=== PATIENT | female | born 1975 | race Caucasian/White ===

== ENCOUNTER 2018-08-17 09:30 | Inpatient (IN) | payer MEDICAID ==
[~2018-08-17] VITALS: Ht 160 cm; Wt 54.3 kg
[2018-08-17] MEDS ORDERED: LORazepam 2 MG/ML VIAL ONE (10:33)
[2018-08-17] MEDS ORDERED: DiphenhydrAMINE HCL 50 MG/ML VIAL ONE (10:33)
[2018-08-17] MEDS ORDERED: HALOPERIDOL LACTATE 5 MG/ML VIAL ONE (10:34)
[2018-08-17] MEDS ORDERED: HALOPERIDOL LACTATE 5 MG/ML VIAL IM ONE (10:45)
[2018-08-17] MEDS ORDERED: LORazepam 2 MG/ML VIAL IM ONE (10:45)
[2018-08-17] MEDS ORDERED: DiphenhydrAMINE HCL 50 MG/ML VIAL IM ONE (10:45)
[2018-08-17 10:48] LABS: AMPHET/METH SCREEN,URINE NEGATIVE (NEGATIVE); BARBITURATE SCREEN, URINE NEGATIVE (NEGATIVE); BENZODIAZEPINES SCREEN,URINE NEGATIVE (NEGATIVE); CANNABINOID SCREEN,URINE POSITIVE (NEGATIVE); COCAINE SCREEN,URINE NEGATIVE (NEGATIVE); METHADONE SCREEN, URINE NEGATIVE (NEGATIVE); OPIATE SCREEN,URINE NEGATIVE (NEGATIVE)
[2018-08-17 10:49] LABS: PHENCYCLIDINE SCREEN,URINE NEGATIVE (NEGATIVE)
[2018-08-17] MEDS ORDERED: PROMETHAZINE HCL 25 MG TABLET PO PRN (11:45)
[2018-08-17] MEDS ORDERED: MAGNESIUM HYDROXIDE SUSPENSION 30 ML UDCUP PO PRN (11:45)
[2018-08-17] MEDS ORDERED: GuaiFENesin/D-METHORPHAN [SUGAR-FREE] 200-20MG/10 ML SYRUP UDCUP PO PRN (11:45)
[2018-08-17] MEDS ORDERED: OLANZapine 5 MG RAPDIS TABLET PO PRN (11:45)
[2018-08-17] MEDS ORDERED: LOPERAMIDE HCL 2 MG CAPSULE PO PRN (11:45)
[2018-08-17] MEDS ORDERED: TUBERCULIN, PURIFIED PROTEIN DERIVATIVE 5 TU/0.1 ML SYG ID ONE (11:45)
[2018-08-17] MEDS ORDERED: MAG HYDROX/AL HYDROX/SIMETH ES 30 ML SUSPENSION UDCUP PO PRN (11:45)
[2018-08-17] MEDS ORDERED: ACETAMINOPHEN 325 MG TABLET PO PRN (11:45)
[2018-08-17 12:21] LABS: BASOPHILS % (AUTO) 1.1 % (0.0-2.0); EOSINOPHILS % (AUTO) 0.7 % (1.0-6.0); HEMATOCRIT 39.2 % (36-46); HEMOGLOBIN 12.9 g/dL (12.0-16.0); LYMPHOCYTES # (AUTO) 1.6 K/uL (1.0-4.8); LYMPHOCYTES % (AUTO) 25.8 % (22.0-44.0); MEAN CORPUSCULAR HEMOGLOBIN 29.4 pg (26.0-34.0); MEAN CORPUSCULAR HGB CONC 32.8 G/dL (31.0-37.0); MEAN CORPUSCULAR VOLUME 90 fL (80-100); MONOCYTES # (AUTO) 0.3 K/uL (0.1-1.0); MONOCYTES % (AUTO) 4.9 % (2.0-9.0); NEUTROPHILS # (AUTO) 4.3 K/uL (1.8-7.7); NEUTROPHILS % (AUTO) 67.5 % (40.0-70.0); PLATELET COUNT (AUTO) 276 K/uL (150-450); RED BLOOD CELL COUNT(AUTO) 4.38 MIL/uL (4.00-5.20); RED CELL DISTRIBUTION WIDTH 13.8 % (11.5-14.5)
[2018-08-17 13:04] LABS: APPEARANCE,URINE CLEAR (CLEAR); BILIRUBIN,URINE NEGATIVE (NEGATIVE); GLUCOSE, URINE (UA) NEGATIVE (NEGATIVE); KETONES,URINE >=80 mg/dL (NEGATIVE); LEUKOCYTE ESTERASE ,URINE NEGATIVE (NEGATIVE); NITRATE,URINE NEGATIVE (NEGATIVE); OCCULT BLOOD,URINE NEGATIVE (NEGATIVE); PH,URINE 5.5 (5.0-8.0); UROBILINOGEN,URINE 0.2 mg/dL (<=1.0)
[2018-08-17 13:06] LABS: ANION GAP 7 mmol/L (8-16); CALCIUM, TOTAL 8.9 mg/dL (8.8-10.5); CARBON DIOXIDE 28 mmol/L (22-29); CHLORIDE 104 mmol/L (98-107); CREATININE 0.59 mg/dL (0.60-1.30); GLOMERULAR FILTR. RATE CALC > 60 mL/min (>60); GLUCOSE,RANDOM 73 mg/dL (70-110); SODIUM SERUM 139 mmol/L (136-145); UREA NITROGEN, BLOOD 10 mg/dL (7-18)
[2018-08-17 13:22] LABS: ALANINE AMINOTRANSFERASE 19 U/L (12-78); ALBUMIN 3.6 g/dL (3.4-5.0); ALKALINE PHOSPHATASE 38 U/L (46-116); ASPARTATE AMINOTRANSFERASE 25 U/L (15-37); BILIRUBIN,TOTAL 0.8 mg/dL (0.1-1.0); HCG,QUANTITATIVE < 1 mIU/mL (0-6); TOTAL PROTEIN, SERUM 6.8 g/dL (6.4-8.2)
[2018-08-17 13:33] LABS: PROTEIN,URINE NEGATIVE (NEGATIVE)
[2018-08-17] MEDS ORDERED: POTASSIUM CHLORIDE 20 MEQ ER TABLET PO ONE (14:00)
[2018-08-17] MEDS ORDERED: LAMO100 PO ×2 (15:29→15:40)
[2018-08-17] MEDS ORDERED: BUPR75 PO (15:29)
[2018-08-17] MEDS ORDERED: BUPR-93 PO (15:39)
[2018-08-17] MEDS: THIAMINE HCL 100 MG TABLET PO SCH (16:13)
[2018-08-17 16:14] VITALS: BP 114/80
[2018-08-17] MEDS ORDERED: OLANZapine 10 MG RAPDIS TABLET PO SCH (21:00)
[2018-08-17] MEDS ORDERED: DIVALPROEX SODIUM 500 MG ER TABLET PO SCH (21:00)
[2018-08-18 05:33] VITALS: BP 135/85
[2018-08-18 08:09] VITALS: BP 107/83
[2018-08-18] MEDS: FOLIC ACID 1 MG TABLET PO SCH (08:19)
[2018-08-18] MEDS: NALTREXONE HCL 50 MG TABLET PO SCH (08:19)
[2018-08-18] MEDS: MULTIVITAMINS WITH MINERALS, THERAPEUTIC TABLET PO SCH (08:19)
[2018-08-18] MEDS: THIAMINE HCL 100 MG TABLET PO SCH ×2 (08:19→16:52)
[2018-08-18] MEDS: NICOTINE 14 MG/24 HOUR PATCH TD SCH (10:33)
[2018-08-18 16:03] VITALS: BP 139/99
[2018-08-18] MEDS: LORazepam 2 MG TABLET PO PRN (16:52)
[2018-08-18] MEDS: HydrOXYzine PAMOATE 50 MG CAPSULE PO PRN (17:46)
[2018-08-18] MEDS ORDERED: ARIPiprazole 5 MG TABLET PO PRN (18:15)
[2018-08-18] MEDS ORDERED: OLANZapine 10 MG RAPDIS TABLET PO SCH (21:00)
[2018-08-19 00:15] VITALS: BP 120/81
[2018-08-19] MEDS: ZOLPIDEM TARTRATE 10 MG TABLET PO PRN ×2 (00:30→21:19)
[2018-08-19] MEDS: LORazepam 2 MG TABLET PO PRN ×2 (05:18→14:38)
[2018-08-19 08:07] VITALS: BP 111/75
[2018-08-19 08:17] LABS: HEMOGLOBIN A1C 5.4 % (4.5-6.2)
[2018-08-19] MEDS: NALTREXONE HCL 50 MG TABLET PO SCH (08:33)
[2018-08-19] MEDS: THIAMINE HCL 100 MG TABLET PO SCH ×3 (08:33→16:02)
[2018-08-19] MEDS: FOLIC ACID 1 MG TABLET PO SCH (08:33)
[2018-08-19] MEDS: MULTIVITAMINS WITH MINERALS, THERAPEUTIC TABLET PO SCH (08:33)
[2018-08-19] MEDS: NICOTINE 14 MG/24 HOUR PATCH TD SCH (08:34)
[2018-08-19 08:42] LABS: ALANINE AMINOTRANSFERASE 30 U/L (12-78); ALBUMIN 3.8 g/dL (3.4-5.0); ALKALINE PHOSPHATASE 43 U/L (46-116); ANION GAP 7 mmol/L (8-16); ASPARTATE AMINOTRANSFERASE 65 U/L (15-37); BILIRUBIN,TOTAL 1.6 mg/dL (0.1-1.0); CALCIUM, TOTAL 9.4 mg/dL (8.8-10.5); CARBON DIOXIDE 28 mmol/L (22-29); CHLORIDE 102 mmol/L (98-107); CHOL/HDL RATIO 2.1 (3.9-5.7); CHOLESTEROL 142 mg/dL (131-200); CREATININE 0.59 mg/dL (0.60-1.30); GLOMERULAR FILTR. RATE CALC > 60 mL/min (>60); GLUCOSE,RANDOM 79 mg/dL (70-110); HDL CHOLESTEROL 67 mg/dL (40-60); LDL CHOL (CALC.) 65 mg/dL (0-130); POTASSIUM 3.1 mmol/L (3.5-5.1); SODIUM SERUM 137 mmol/L (136-145); THYROID STIMULATING HORMONE 1.51 uIU/mL (0.36-3.74); TOTAL PROTEIN, SERUM 7.4 g/dL (6.4-8.2); TRIGLYCERIDES 51 mg/dL (15-150); UREA NITROGEN, BLOOD 9 mg/dL (7-18); VALPROIC ACID 21 mcg/mL (50-100)
[2018-08-19] MEDS ORDERED: ARIPiprazole 2 MG TABLET PO SCH (09:00)
[2018-08-19] MEDS ORDERED: POTASSIUM CHLORIDE 20 MEQ ER TABLET PO ONE (12:30)
[2018-08-19] MEDS: HydrOXYzine PAMOATE 50 MG CAPSULE PO PRN (15:58)
[2018-08-19] MEDS ORDERED: NALT50TA PO (16:12)
[2018-08-19] MEDS ORDERED: ARIP5TAB8 PO (16:12)
[2018-08-19 16:39] VITALS: BP 129/72
[2018-08-20 02:00] VITALS: BP 128/89
[2018-08-20] MEDS: LORazepam 2 MG TABLET PO PRN ×2 (02:06→09:26)
[2018-08-20] MEDS ORDERED: ARIP5TAB8 PO (07:59)
[2018-08-20] MEDS ORDERED: NALT50TA6 PO (07:59)
[2018-08-20 08:09] VITALS: BP 114/85
[2018-08-20 08:58] LABS: ANION GAP 11 mmol/L (8-16); CALCIUM, TOTAL 9.4 mg/dL (8.8-10.5); CARBON DIOXIDE 26 mmol/L (22-29); CHLORIDE 101 mmol/L (98-107); CREATININE 0.56 mg/dL (0.60-1.30); GLOMERULAR FILTR. RATE CALC > 60 mL/min (>60); GLUCOSE,RANDOM 90 mg/dL (70-110); POTASSIUM 3.5 mmol/L (3.5-5.1); SODIUM SERUM 138 mmol/L (136-145); UREA NITROGEN, BLOOD 6 mg/dL (7-18)
[2018-08-20] MEDS ORDERED: ARIPiprazole 5 MG TABLET PO SCH (09:00)
[2018-08-20] MEDS: NALTREXONE HCL 50 MG TABLET PO SCH (09:26)
[2018-08-20] MEDS: MULTIVITAMINS WITH MINERALS, THERAPEUTIC TABLET PO SCH (09:26)
[2018-08-20] MEDS: THIAMINE HCL 100 MG TABLET PO SCH (09:26)
[2018-08-20] MEDS: FOLIC ACID 1 MG TABLET PO SCH (09:27)
[2018-08-20] MEDS: NICOTINE 14 MG/24 HOUR PATCH TD SCH (09:28)
== END 2018-08-20 11:20 | disposition home or self-care (01) | DRG 750 ==
LOC: EMS 09:32 → B3A 14:19
PROVIDERS: ADMIT Psychiatry & Neurology Psychiatry; ATTEND Psychiatry & Neurology Psychiatry
DX: F25.9 Schizoaffective disorder, unspecified (principal); E46 Unspecified protein-calorie malnutrition; R45.851 Suicidal ideations; E87.6 Hypokalemia; F12.90 Cannabis use, unspecified, uncomplicated; F17.210 Nicotine dependence, cigarettes, uncomplicated; F31.9 Bipolar disorder, unspecified; F60.0 Paranoid personality disorder; Z65.3 Problems related to other legal circumstances; Z91.14 Patient's other noncompliance with medication regimen; Z68.21 Body mass index [BMI] 21.0-21.9, adult; Z53.20 Procedure and treatment not carried out because of patient's decision for unspecified reasons
CPT/HCPCS: 80074; 83036; 84439; 84443; 86592; 90686; G0480; J1200; J1630; J2060

== ENCOUNTER 2018-09-28 18:37 | Emergency (ER) | payer SELFPAY ==
[~2018-09-28] VITALS: Ht 160 cm; Wt 57.7 kg
[~2018-09-28 18:37] MED LIST: ARIP5TAB8 PO; NALT50TA PO; NALT50TA6 PO
[2018-09-28 19:06] VITALS: BP 125/88
[2018-09-28] MEDS ORDERED: TRIH2TAB3 PO (19:23)
[2018-09-28] MEDS ORDERED: OXCA300T29 PO (19:23)
[2018-09-28] MEDS ORDERED: HALO10 PO (19:23)
[2018-09-29] MEDS ORDERED: HALO10 PO (14:20)
[2018-09-29] MEDS ORDERED: OXCA300T29 PO (14:20)
[2018-09-29] MEDS ORDERED: TRIH2TAB3 PO (14:20)
== END 2018-09-28 20:00 | disposition left against medical advice (07) ==
LOC: EMS 18:38
DX: R45.851 Suicidal ideations (principal); Z53.21 Procedure and treatment not carried out due to patient leaving prior to being seen by health care provider

== ENCOUNTER 2018-09-29 12:47 | Inpatient (IN) | payer MEDICAID ==
[~2018-09-29] VITALS: Ht 160 cm; Wt 53.5 kg
[~2018-09-29 12:47] MED LIST changes: -ARIP5TAB8 PO; +HALO10 PO; -NALT50TA PO; -NALT50TA6 PO; +OXCA300T29 PO; +TRIH2TAB3 PO
[2018-09-29 13:39] VITALS: BP 104/65
[2018-09-29] MEDS ORDERED: NICOTINE 14 MG/24 HOUR PATCH TD PRN (14:15)
[2018-09-29] MEDS ORDERED: MAGNESIUM HYDROXIDE SUSPENSION 30 ML UDCUP PO PRN (14:15)
[2018-09-29] MEDS ORDERED: PETROLATUM,WHITE 71 GM JELLY TP PRN (14:15)
[2018-09-29] MEDS ORDERED: MAG HYDROX/AL HYDROX/SIMETH ES 30 ML SUSPENSION UDCUP PO PRN (14:15)
[2018-09-29] MEDS ORDERED: DOCUSATE SODIUM 100 MG CAPSULE PO PRN (14:15)
[2018-09-29] MEDS ORDERED: LOPERAMIDE HCL 2 MG CAPSULE PO PRN (14:15)
[2018-09-29] MEDS ORDERED: ACETAMINOPHEN 325 MG TABLET PO PRN (14:15)
[2018-09-29] MEDS ORDERED: TRIH2TAB3 PO (14:20)
[2018-09-29] MEDS ORDERED: HALO10 PO (14:20)
[2018-09-29] MEDS ORDERED: OXCA300T29 PO (14:20)
[2018-09-29 16:05] VITALS: BP 102/68
[2018-09-29] MEDS: LORazepam 2 MG TABLET PO PRN (18:04)
[2018-09-29] MEDS: ZOLPIDEM TARTRATE 10 MG TABLET PO PRN (21:53)
[2018-09-30] MEDS: LORazepam 2 MG TABLET PO PRN (00:20)
[2018-09-30] MEDS: HALOPERIDOL 5 MG TABLET PO PRN (00:21)
[2018-09-30 01:13] VITALS: BP 122/76
[2018-09-30 08:23] VITALS: BP 112/83
[2018-09-30 08:43] LABS: BASOPHILS % (AUTO) 2.4 % (0.0-2.0); EOSINOPHILS % (AUTO) 2.4 % (1.0-6.0); HEMATOCRIT 37.3 % (36-46); HEMOGLOBIN 12.7 g/dL (12.0-16.0); LYMPHOCYTES # (AUTO) 1.9 K/uL (1.0-4.8); LYMPHOCYTES % (AUTO) 36.4 % (22.0-44.0); MEAN CORPUSCULAR VOLUME 88 fL (80-100); MONOCYTES # (AUTO) 0.3 K/uL (0.1-1.0); MONOCYTES % (AUTO) 5.6 % (2.0-9.0); NEUTROPHILS # (AUTO) 2.8 K/uL (1.8-7.7); NEUTROPHILS % (AUTO) 53.2 % (40.0-70.0); PLATELET COUNT (AUTO) 332 K/uL (150-450); RED BLOOD CELL COUNT(AUTO) 4.24 MIL/uL (4.00-5.20); RED CELL DISTRIBUTION WIDTH 13.7 % (11.5-14.5)
[2018-09-30 09:16] LABS: AMPHET/METH SCREEN,URINE NEGATIVE (NEGATIVE); BARBITURATE SCREEN, URINE NEGATIVE (NEGATIVE); BENZODIAZEPINES SCREEN,URINE NEGATIVE (NEGATIVE); CANNABINOID SCREEN,URINE POSITIVE (NEGATIVE); COCAINE SCREEN,URINE NEGATIVE (NEGATIVE); METHADONE SCREEN, URINE NEGATIVE (NEGATIVE); OPIATE SCREEN,URINE NEGATIVE (NEGATIVE)
[2018-09-30 09:17] LABS: PHENCYCLIDINE SCREEN,URINE NEGATIVE (NEGATIVE)
[2018-09-30 09:23] LABS: ALANINE AMINOTRANSFERASE 19 U/L (12-78); ALBUMIN 3.7 g/dL (3.4-5.0); ALKALINE PHOSPHATASE 60 U/L (46-116); ANION GAP 8 mmol/L (8-16); ASPARTATE AMINOTRANSFERASE 20 U/L (15-37); BILIRUBIN,TOTAL 0.5 mg/dL (0.1-1.0); CARBON DIOXIDE 25 mmol/L (22-29); CHLORIDE 91 mmol/L (98-107); CHOL/HDL RATIO 2.3 (3.9-5.7); CHOLESTEROL 161 mg/dL (131-200); CREATININE 0.51 mg/dL (0.60-1.30); FREE T4 (FREE THYROXINE) 0.94 ng/dL (0.76-1.46); GLOMERULAR FILTR. RATE CALC > 60 mL/min (>60); GLUCOSE,RANDOM 85 mg/dL (70-110); HCG,QUANTITATIVE < 1 mIU/mL (0-6); HDL CHOLESTEROL 70 mg/dL (40-60); LDL CHOL (CALC.) 83 mg/dL (0-130); THYROID STIMULATING HORMONE 2.51 uIU/mL (0.36-3.74); TOTAL PROTEIN, SERUM 7.1 g/dL (6.4-8.2); TRIGLYCERIDES 40 mg/dL (15-150); UREA NITROGEN, BLOOD 8 mg/dL (7-18)
[2018-09-30 09:25] LABS: APPEARANCE,URINE CLEAR (CLEAR); BILIRUBIN,URINE NEGATIVE (NEGATIVE); GLUCOSE, URINE (UA) NEGATIVE (NEGATIVE); KETONES,URINE NEGATIVE (NEGATIVE); LEUKOCYTE ESTERASE ,URINE NEGATIVE (NEGATIVE); NITRATE,URINE NEGATIVE (NEGATIVE); OCCULT BLOOD,URINE NEGATIVE (NEGATIVE); PROTEIN,URINE NEGATIVE (NEGATIVE); UROBILINOGEN,URINE 0.2 mg/dL (<=1.0)
[2018-09-30 09:26] LABS: SODIUM SERUM 124 mmol/L (136-145)
[2018-09-30 09:41] LABS: HEMOGLOBIN A1C 5.3 % (4.5-6.2)
[2018-09-30 17:52] VITALS: BP 122/81
[2018-09-30] MEDS: ZOLPIDEM TARTRATE 10 MG TABLET PO PRN (22:37)
[2018-10-01] MEDS: LORazepam 2 MG TABLET PO PRN ×3 (04:08→20:12)
[2018-10-01] MEDS: HALOPERIDOL 5 MG TABLET PO PRN ×2 (04:09→10:52)
[2018-10-01 04:22] VITALS: BP 117/83
[2018-10-01 09:13] VITALS: BP 114/76
[2018-10-01] MEDS: ARIPiprazole 10 MG TABLET PO SCH (14:04)
[2018-10-01 17:17] VITALS: BP 127/78
[2018-10-01] MEDS: ZOLPIDEM TARTRATE 10 MG TABLET PO PRN (20:46)
[2018-10-02 06:08] VITALS: BP 125/78
[2018-10-02 06:39] LABS: ANION GAP 8 mmol/L (8-16); CARBON DIOXIDE 28 mmol/L (22-29); CHLORIDE 100 mmol/L (98-107); CREATININE 0.67 mg/dL (0.60-1.30); GLOMERULAR FILTR. RATE CALC > 60 mL/min (>60); GLUCOSE,RANDOM 90 mg/dL (70-110); POTASSIUM 4.7 mmol/L (3.5-5.1); SODIUM SERUM 136 mmol/L (136-145)
[2018-10-02 06:48] LABS: UREA NITROGEN, BLOOD 9 mg/dL (7-18)
[2018-10-02 08:05] VITALS: BP 135/97
[2018-10-02] MEDS: ARIPiprazole 10 MG TABLET PO SCH (09:48)
[2018-10-02] MEDS: LORazepam 2 MG TABLET PO PRN ×4 (09:49→21:30)
[2018-10-02] MEDS: HALOPERIDOL 5 MG TABLET PO PRN (12:26)
[2018-10-02 18:12] VITALS: BP 117/65
[2018-10-02] MEDS: ZOLPIDEM TARTRATE 10 MG TABLET PO PRN (21:40)
[2018-10-03 03:30] VITALS: BP 114/98
[2018-10-03] MEDS: LORazepam 2 MG TABLET PO PRN ×2 (03:34→11:49)
[2018-10-03 08:05] VITALS: BP 129/88
[2018-10-03] MEDS: ARIPiprazole 10 MG TABLET PO SCH (09:13)
[2018-10-03 20:13] VITALS: BP 123/89
[2018-10-03] MEDS: ZOLPIDEM TARTRATE 10 MG TABLET PO PRN (21:40)
[2018-10-04] MEDS: LORazepam 2 MG TABLET PO PRN (03:57)
[2018-10-04 05:18] VITALS: BP 121/90
[2018-10-04 07:10] VITALS: BP 115/87
[2018-10-04 08:10] VITALS: BP 126/85
[2018-10-04] MEDS: ARIPiprazole 10 MG TABLET PO SCH (09:08)
[2018-10-04] MEDS ORDERED: ARIP10TA8 PO (12:12)
== END 2018-10-04 15:33 | disposition home or self-care (01) | DRG 750 ==
LOC: B2S 13:54 → 3EI 09-30 15:10
PROVIDERS: ADMIT Psychiatry & Neurology Psychiatry; ATTEND Psychiatry & Neurology Psychiatry
DX: F25.1 Schizoaffective disorder, depressive type (principal); R45.851 Suicidal ideations; E87.1 Hypo-osmolality and hyponatremia; F32.9 Major depressive disorder, single episode, unspecified; R10.13 Epigastric pain; F19.10 Other psychoactive substance abuse, uncomplicated; Z71.51 Drug abuse counseling and surveillance of drug abuser; F12.10 Cannabis abuse, uncomplicated; Z79.899 Other long term (current) drug therapy
CPT/HCPCS: 83036; 84439; 84443; 87081

== ENCOUNTER 2018-09-30 10:17 | Emergency (ER) | payer MEDICAID ==
[~2018-09-30] VITALS: Ht 157.5 cm; Wt 57.5 kg
[2018-09-30 11:26] LABS: BASOPHILS % (AUTO) 0.7 % (0.0-2.0); EOSINOPHILS % (AUTO) 0.5 % (1.0-6.0); HEMATOCRIT 41.1 % (36-46); HEMOGLOBIN 13.7 g/dL (12.0-16.0); LYMPHOCYTES % (AUTO) 23.2 % (22.0-44.0); MEAN CORPUSCULAR HGB CONC 33.5 G/dL (31.0-37.0); MEAN CORPUSCULAR VOLUME 90 fL (80-100); MONOCYTES # (AUTO) 0.2 K/uL (0.1-1.0); MONOCYTES % (AUTO) 4.9 % (2.0-9.0); NEUTROPHILS # (AUTO) 3.2 K/uL (1.8-7.7); NEUTROPHILS % (AUTO) 70.7 % (40.0-70.0); PLATELET COUNT (AUTO) 348 K/uL (150-450); RED BLOOD CELL COUNT(AUTO) 4.59 MIL/uL (4.00-5.20); RED CELL DISTRIBUTION WIDTH 13.6 % (11.5-14.5)
[2018-09-30 11:34] LABS: OSMOLALITY,URINE 102 mOS/kg (50-1200)
[2018-09-30 11:36] LABS: SODIUM,URINE RANDOM 29 mmol/l (20-110)
[2018-09-30 11:40] LABS: ANION GAP 7 mmol/L (8-16); CALCIUM, TOTAL 9.5 mg/dL (8.8-10.5); CARBON DIOXIDE 27 mmol/L (22-29); CHLORIDE 95 mmol/L (98-107); CREATININE 0.51 mg/dL (0.60-1.30); GLOMERULAR FILTR. RATE CALC > 60 mL/min (>60); GLUCOSE,RANDOM 87 mg/dL (70-110); POTASSIUM 5.1 mmol/L (3.5-5.1); SODIUM SERUM 129 mmol/L (136-145); UREA NITROGEN, BLOOD 5 mg/dL (7-18)
[2018-09-30 11:46] LABS: ALANINE AMINOTRANSFERASE 24 U/L (12-78); ALBUMIN 4.3 g/dL (3.4-5.0); ALKALINE PHOSPHATASE 68 U/L (46-116); ASPARTATE AMINOTRANSFERASE 21 U/L (15-37); BILIRUBIN,TOTAL 0.4 mg/dL (0.1-1.0); TOTAL PROTEIN, SERUM 7.8 g/dL (6.4-8.2)
[2018-09-30 11:57] LABS: APPEARANCE,URINE CLEAR (CLEAR); BILIRUBIN,URINE NEGATIVE (NEGATIVE); GLUCOSE, URINE (UA) NEGATIVE (NEGATIVE); KETONES,URINE NEGATIVE (NEGATIVE); LEUKOCYTE ESTERASE ,URINE NEGATIVE (NEGATIVE); NITRATE,URINE NEGATIVE (NEGATIVE); OCCULT BLOOD,URINE TRACE (NEGATIVE); PH,URINE 7.5 (5.0-8.0); PROTEIN,URINE NEGATIVE (NEGATIVE); UROBILINOGEN,URINE 0.2 mg/dL (<=1.0)
[2018-09-30 12:05] LABS: BACTERIA,URINE None Seen /HPF (None Seen); RBC,URINE 0-2 /HPF (0-2); SQUAMOUS EPITHELIAL CELL,UR Rare /LPF (None Seen); WBC,URINE None Seen /HPF (0-5)
[2018-09-30 12:05] LABS: OSMOLALITY 277 mOS/kg (270-310)
[2018-09-30] MEDS ORDERED: SODIUM CHLORIDE 0.9% 1,000 ML IV ONE (12:45)
[2018-09-30 16:38] VITALS: BP 122/62
[2018-09-30 16:39] LABS: HCG,QUANTITATIVE < 1 mIU/mL (0-6)
== END 2018-09-30 17:02 | disposition other institution (70) ==
LOC: EMS 10:19
DX: F25.1 Schizoaffective disorder, depressive type (principal); E87.1 Hypo-osmolality and hyponatremia; F31.9 Bipolar disorder, unspecified; F41.9 Anxiety disorder, unspecified
CPT/HCPCS: 36415; 80053; 81001; 83930; 83935; 84300; 84702; 85025; 99285; J7030

== ENCOUNTER 2019-07-05 23:49 | Inpatient (IN) | payer MEDICAID, OTHER ==
[~2019-07-05] VITALS: Ht 160 cm; Wt 75.0 kg
[~2019-07-05 23:49] MED LIST changes: +ARIP10TA8 PO; -HALO10 PO; -OXCA300T29 PO; -TRIH2TAB3 PO
[2019-07-06] MEDS ORDERED: QUET100T PO (00:36)
[2019-07-06] MEDS ORDERED: LAMO100 PO (00:36)
[2019-07-06] MEDS ORDERED: MIRT30 PO (00:36)
[2019-07-06] MEDS ORDERED: BUPR100T6 PO (00:36)
[2019-07-06] MEDS ORDERED: HALOPERIDOL LACTATE 5 MG/ML VIAL IM ONE (00:45)
[2019-07-06] MEDS ORDERED: DiphenhydrAMINE HCL 50 MG/ML VIAL IM ONE (00:45)
[2019-07-06] MEDS ORDERED: LORazepam 2 MG/ML VIAL IM ONE (00:45)
[2019-07-06] MEDS ORDERED: QUEtiapine FUMARATE 100 MG TABLET PO PRN (01:00)
[2019-07-06 02:18] LABS: BASOPHILS % (AUTO) 0.7 % (0.0-2.0); EOSINOPHILS % (AUTO) 3.3 % (1.0-6.0); HEMATOCRIT 38.6 % (36-46); HEMOGLOBIN 12.9 g/dL (12.0-16.0); LYMPHOCYTES # (AUTO) 2.4 K/uL (1.0-4.8); LYMPHOCYTES % (AUTO) 31.8 % (22.0-44.0); MEAN CORPUSCULAR HEMOGLOBIN 29.8 pg (26.0-34.0); MEAN CORPUSCULAR HGB CONC 33.3 G/dL (31.0-37.0); MEAN CORPUSCULAR VOLUME 90 fL (80-100); MONOCYTES # (AUTO) 0.5 K/uL (0.1-1.0); MONOCYTES % (AUTO) 6.2 % (2.0-9.0); NEUTROPHILS # (AUTO) 4.4 K/uL (1.8-7.7); PLATELET COUNT (AUTO) 320 K/uL (150-450); RED BLOOD CELL COUNT(AUTO) 4.31 MIL/uL (4.00-5.20); RED CELL DISTRIBUTION WIDTH 13.9 % (11.5-14.5)
[2019-07-06 02:30] LABS: ANION GAP 7 mmol/L (8-16); CALCIUM, TOTAL 8.7 mg/dL (8.8-10.5); CARBON DIOXIDE 28 mmol/L (22-29); CHLORIDE 105 mmol/L (98-107); GLOMERULAR FILTR. RATE CALC > 60 mL/min (>60); GLUCOSE,RANDOM 102 mg/dL (70-110); POTASSIUM 3.3 mmol/L (3.5-5.1); SODIUM SERUM 140 mmol/L (136-145); UREA NITROGEN, BLOOD 6 mg/dL (7-18)
[2019-07-06 02:38] LABS: ALANINE AMINOTRANSFERASE 15 U/L (12-78); ALBUMIN 3.8 g/dL (3.4-5.0); ALKALINE PHOSPHATASE 56 U/L (46-116); ASPARTATE AMINOTRANSFERASE 21 U/L (15-37); BILIRUBIN,TOTAL 0.7 mg/dL (0.1-1.0); HCG,QUANTITATIVE < 1 mIU/mL (0-6)
[2019-07-06] MEDS ORDERED: INFLUENZA VIRUS VACCINE QVS 2019-20 (3YR+)/PF 60 MCG/0.5 ML SYRINGE IM ONE (06:00)
[2019-07-06 06:17] VITALS: BP 78/81
[2019-07-06] MEDS ORDERED: NICOTINE 14 MG/24 HOUR PATCH TD PRN (10:45)
[2019-07-06] MEDS ORDERED: ONDANSETRON HCL 4 MG TABLET PO PRN (10:45)
[2019-07-06] MEDS ORDERED: POTASSIUM CHLORIDE 20 MEQ ER TABLET PO ONE (10:45)
[2019-07-06] MEDS ORDERED: ALBUTEROL SULFATE HFA 90 MCG/PUFF 8 GM INHALER IH PRN (10:45)
[2019-07-06] MEDS ORDERED: LOPERAMIDE HCL 2 MG CAPSULE PO PRN (10:45)
[2019-07-06] MEDS ORDERED: MAGNESIUM HYDROXIDE SUSPENSION 30 ML UDCUP PO PRN (10:45)
[2019-07-06] MEDS ORDERED: ACETAMINOPHEN 325 MG TABLET PO PRN (10:45)
[2019-07-06] MEDS ORDERED: CloNIDine HCL 0.1 MG TABLET PO PRN (10:45)
[2019-07-06] MEDS ORDERED: PETROLATUM,WHITE 28 GM JELLY TP PRN (10:45)
[2019-07-06] MEDS ORDERED: GuaiFENesin/D-METHORPHAN [SUGAR-FREE] 200-20MG/10 ML SYRUP UDCUP PO PRN (10:45)
[2019-07-06 16:12] VITALS: BP 122/91
[2019-07-06] MEDS: MAG HYDROX/AL HYDROX/SIMETH ES 30 ML SUSPENSION UDCUP PO PRN (19:30)
[2019-07-06] MEDS: QUEtiapine FUMARATE 100 MG TABLET PO SCH (20:25)
[2019-07-06] MEDS: LamoTRIgine 100 MG TABLET PO SCH (20:25)
[2019-07-07] MEDS: ZOLPIDEM TARTRATE 10 MG TABLET PO PRN ×2 (01:53→22:06)
[2019-07-07 08:24] VITALS: BP 131/79
[2019-07-07] MEDS: IBUPROFEN 400 MG TABLET PO PRN ×2 (09:25→14:52)
[2019-07-07 16:00] VITALS: BP 131/92
[2019-07-07] MEDS: MAG HYDROX/AL HYDROX/SIMETH ES 30 ML SUSPENSION UDCUP PO PRN (16:24)
[2019-07-07 19:00] VITALS: BP 158/96
[2019-07-07] MEDS: LamoTRIgine 100 MG TABLET PO SCH (20:38)
[2019-07-07] MEDS: QUEtiapine FUMARATE 100 MG TABLET PO SCH (20:38)
[2019-07-08] MEDS: LORazepam 2 MG TABLET PO PRN ×2 (01:18→12:39)
[2019-07-08 03:17] VITALS: BP 126/72
[2019-07-08 08:18] VITALS: BP 114/84
[2019-07-08] MEDS: DOCUSATE SODIUM 100 MG CAPSULE PO PRN (08:47)
[2019-07-08] MEDS: PANTOPRAZOLE SODIUM 40 MG DR TABLET PO SCH (11:34)
[2019-07-08 16:07] VITALS: BP 134/74
[2019-07-08] MEDS: LamoTRIgine 100 MG TABLET PO SCH (20:05)
[2019-07-08] MEDS: QUEtiapine FUMARATE 100 MG TABLET PO SCH (20:06)
[2019-07-09 00:44] VITALS: BP 140/94
[2019-07-09] MEDS: ZOLPIDEM TARTRATE 10 MG TABLET PO PRN (01:38)
[2019-07-09] MEDS: IBUPROFEN 400 MG TABLET PO PRN (04:11)
[2019-07-09 08:05] VITALS: BP 139/95
[2019-07-09] MEDS: PANTOPRAZOLE SODIUM 40 MG DR TABLET PO SCH (08:12)
[2019-07-09] MEDS: LORazepam 2 MG TABLET PO PRN (08:12)
[2019-07-09] MEDS: DOCUSATE SODIUM 100 MG CAPSULE PO PRN (08:12)
[2019-07-09] MEDS ORDERED: QUET100T33 PO (10:54)
[2019-07-09] MEDS ORDERED: LAMO100 PO (10:54)
[2019-07-09] MEDS ORDERED: PANT40TA25 PO (11:27)
== END 2019-07-09 13:30 | disposition home or self-care (01) | DRG 750 ==
LOC: EMS 23:51 → B3A 07-06 03:30
DX: F25.0 Schizoaffective disorder, bipolar type (principal); R45.851 Suicidal ideations; Z28.21 Immunization not carried out because of patient refusal; Z91.5 Personal history of self-harm; Z79.899 Other long term (current) drug therapy; K21.9 Gastro-esophageal reflux disease without esophagitis; J45.909 Unspecified asthma, uncomplicated; E87.6 Hypokalemia; F41.9 Anxiety disorder, unspecified; G47.00 Insomnia, unspecified; F19.10 Other psychoactive substance abuse, uncomplicated
CPT/HCPCS: 99291; G0480; J1200; J1630; J2060; Q0162

== ENCOUNTER 2019-07-14 00:17 | Inpatient (IN) | payer MEDICAID, OTHER ==
[~2019-07-14] VITALS: Ht 160 cm; Wt 61.6 kg
[~2019-07-14 00:17] MED LIST changes: -ARIP10TA8 PO; +PANT40TA25 PO
[2019-07-14] MEDS ORDERED: QUET200T PO (01:36)
[2019-07-14] MEDS ORDERED: HALOPERIDOL 5 MG TABLET PO PRN (02:15)
[2019-07-14] MEDS: LORazepam 2 MG TABLET PO PRN ×2 (03:14→08:54)
[2019-07-14] MEDS ORDERED: INFLUENZA VIRUS VACCINE QVS 2019-20 (3YR+)/PF 60 MCG/0.5 ML SYRINGE IM ONE (06:30)
[2019-07-14 06:43] VITALS: BP 104/71
[2019-07-14 08:08] VITALS: BP 101/68
[2019-07-14] MEDS: PANTOPRAZOLE SODIUM 40 MG DR TABLET PO SCH (08:26)
[2019-07-14] MEDS: LamoTRIgine 100 MG TABLET PO SCH (09:49)
[2019-07-14] MEDS ORDERED: MAGNESIUM HYDROXIDE SUSPENSION 30 ML UDCUP PO PRN (10:30)
[2019-07-14] MEDS ORDERED: NICOTINE 14 MG/24 HOUR PATCH TD PRN (10:30)
[2019-07-14] MEDS ORDERED: ALBUTEROL SULFATE HFA 90 MCG/PUFF 8 GM INHALER IH PRN (10:30)
[2019-07-14] MEDS ORDERED: GuaiFENesin/D-METHORPHAN [SUGAR-FREE] 200-20MG/10 ML SYRUP UDCUP PO PRN (10:30)
[2019-07-14] MEDS ORDERED: PETROLATUM,WHITE 28 GM JELLY TP PRN (10:30)
[2019-07-14] MEDS ORDERED: CloNIDine HCL 0.1 MG TABLET PO PRN (10:30)
[2019-07-14] MEDS ORDERED: DOCUSATE SODIUM 100 MG CAPSULE PO PRN (10:30)
[2019-07-14] MEDS ORDERED: LOPERAMIDE HCL 2 MG CAPSULE PO PRN (10:30)
[2019-07-14 12:02] VITALS: BP 111/75
[2019-07-14 12:13] LABS: GLUCOMETER DEV NAME(LOC) BV3N.; GLUCOSE,POINT OF CARE 86 MG/DL (70-110)
[2019-07-14 12:28] VITALS: BP 111/75
[2019-07-14 16:20] VITALS: BP 107/78
[2019-07-14] MEDS: ZOLPIDEM TARTRATE 10 MG TABLET PO PRN (20:07)
[2019-07-14] MEDS: QUEtiapine FUMARATE 200 MG TABLET PO SCH (20:07)
[2019-07-15 01:09] VITALS: BP 129/76
[2019-07-15] MEDS: LORazepam 2 MG TABLET PO PRN ×2 (02:15→08:27)
[2019-07-15 07:08] LABS: BASOPHILS % (AUTO) 1.3 % (0.0-2.0); EOSINOPHILS % (AUTO) 4.7 % (1.0-6.0); HEMATOCRIT 39.3 % (36-46); HEMOGLOBIN 13.1 g/dL (12.0-16.0); LYMPHOCYTES # (AUTO) 1.7 K/uL (1.0-4.8); LYMPHOCYTES % (AUTO) 32.6 % (22.0-44.0); MEAN CORPUSCULAR HEMOGLOBIN 30.1 pg (26.0-34.0); MEAN CORPUSCULAR HGB CONC 33.4 G/dL (31.0-37.0); MEAN CORPUSCULAR VOLUME 90 fL (80-100); MONOCYTES # (AUTO) 0.2 K/uL (0.1-1.0); MONOCYTES % (AUTO) 4.6 % (2.0-9.0); NEUTROPHILS % (AUTO) 56.8 % (40.0-70.0); PLATELET COUNT (AUTO) 313 K/uL (150-450); RED BLOOD CELL COUNT(AUTO) 4.36 MIL/uL (4.00-5.20); RED CELL DISTRIBUTION WIDTH 13.7 % (11.5-14.5)
[2019-07-15 07:28] LABS: ALANINE AMINOTRANSFERASE 63 U/L (12-78); ALBUMIN 3.4 g/dL (3.4-5.0); ALKALINE PHOSPHATASE 60 U/L (46-116); ANION GAP 5 mmol/L (8-16); ASPARTATE AMINOTRANSFERASE 38 U/L (15-37); BILIRUBIN,TOTAL 0.6 mg/dL (0.1-1.0); CALCIUM, TOTAL 8.4 mg/dL (8.8-10.5); CARBON DIOXIDE 28 mmol/L (22-29); CHLORIDE 107 mmol/L (98-107); CHOL/HDL RATIO 2.6 (3.9-5.7); CHOLESTEROL 129 mg/dL (131-200); CREATININE 0.77 mg/dL (0.60-1.30); GLOMERULAR FILTR. RATE CALC > 60 mL/min (>60); GLUCOSE,RANDOM 79 mg/dL (70-110); HCG,QUANTITATIVE < 1 mIU/mL (0-6); HDL CHOLESTEROL 50 mg/dL (40-60); LDL CHOL (CALC.) 64 mg/dL (0-130); POTASSIUM 4.1 mmol/L (3.5-5.1); SODIUM SERUM 140 mmol/L (136-145); TOTAL PROTEIN, SERUM 6.5 g/dL (6.4-8.2); TRIGLYCERIDES 73 mg/dL (15-150); UREA NITROGEN, BLOOD 10 mg/dL (7-18)
[2019-07-15 07:43] LABS: AMPHET/METH SCREEN,URINE NEGATIVE (NEGATIVE); BARBITURATE SCREEN, URINE NEGATIVE (NEGATIVE); BENZODIAZEPINES SCREEN,URINE NEGATIVE (NEGATIVE); CANNABINOID SCREEN,URINE POSITIVE (NEGATIVE); COCAINE SCREEN,URINE NEGATIVE (NEGATIVE); METHADONE SCREEN, URINE NEGATIVE (NEGATIVE); OPIATE SCREEN,URINE POSITIVE (NEGATIVE)
[2019-07-15 07:44] LABS: APPEARANCE,URINE CLEAR (CLEAR); BILIRUBIN,URINE NEGATIVE (NEGATIVE); GLUCOSE, URINE (UA) NEGATIVE (NEGATIVE); KETONES,URINE NEGATIVE (NEGATIVE); LEUKOCYTE ESTERASE ,URINE NEGATIVE (NEGATIVE); NITRATE,URINE NEGATIVE (NEGATIVE); OCCULT BLOOD,URINE TRACE (NEGATIVE); PROTEIN,URINE NEGATIVE (NEGATIVE); UROBILINOGEN,URINE 0.2 mg/dL (<=1.0)
[2019-07-15 07:45] LABS: PHENCYCLIDINE SCREEN,URINE NEGATIVE (NEGATIVE)
[2019-07-15 08:07] LABS: BACTERIA,URINE None Seen /HPF (None Seen); RBC,URINE 0-2 /HPF (0-2); SQUAMOUS EPITHELIAL CELL,UR Few /LPF (None Seen); WBC,URINE None Seen /HPF (0-5)
[2019-07-15 08:13] VITALS: BP 112/81
[2019-07-15] MEDS: PANTOPRAZOLE SODIUM 40 MG DR TABLET PO SCH (08:27)
[2019-07-15] MEDS: LamoTRIgine 100 MG TABLET PO SCH (08:27)
[2019-07-15 17:03] VITALS: BP 115/74
[2019-07-15] MEDS: QUEtiapine FUMARATE 200 MG TABLET PO SCH (20:52)
[2019-07-15] MEDS: ZOLPIDEM TARTRATE 10 MG TABLET PO PRN (21:35)
[2019-07-15 23:51] VITALS: BP 140/78
[2019-07-16 02:00] VITALS: BP 127/83
[2019-07-16] MEDS: LORazepam 2 MG TABLET PO PRN (02:06)
[2019-07-16 08:22] VITALS: BP 127/77
[2019-07-16] MEDS: LamoTRIgine 100 MG TABLET PO SCH (09:32)
[2019-07-16] MEDS: PANTOPRAZOLE SODIUM 40 MG DR TABLET PO SCH (09:32)
[2019-07-16 16:43] VITALS: BP 133/84
[2019-07-16] MEDS: QUEtiapine FUMARATE 200 MG TABLET PO SCH (20:12)
[2019-07-16] MEDS: ZOLPIDEM TARTRATE 10 MG TABLET PO PRN (20:12)
[2019-07-16] MEDS: MAG HYDROX/AL HYDROX/SIMETH ES 30 ML SUSPENSION UDCUP PO PRN (20:27)
[2019-07-17 00:02] VITALS: BP 128/72
[2019-07-17] MEDS: ONDANSETRON HCL 4 MG TABLET PO PRN ×2 (00:09→00:15)
[2019-07-17] MEDS: LORazepam 2 MG TABLET PO PRN ×3 (00:09→21:02)
[2019-07-17] MEDS: LamoTRIgine 100 MG TABLET PO SCH (08:02)
[2019-07-17] MEDS: PANTOPRAZOLE SODIUM 40 MG DR TABLET PO SCH (08:02)
[2019-07-17 08:12] VITALS: BP 134/85
[2019-07-17 10:55] VITALS: BP 123/93
[2019-07-17] MEDS: IBUPROFEN 400 MG TABLET PO PRN (10:55)
[2019-07-17 16:17] VITALS: BP 134/83
[2019-07-17] MEDS: MAG HYDROX/AL HYDROX/SIMETH ES 30 ML SUSPENSION UDCUP PO PRN ×2 (16:41→23:39)
[2019-07-17] MEDS: QUEtiapine FUMARATE 200 MG TABLET PO SCH (20:14)
[2019-07-17] MEDS: ZOLPIDEM TARTRATE 10 MG TABLET PO PRN (20:14)
[2019-07-18] MEDS: ONDANSETRON HCL 4 MG TABLET PO PRN (00:10)
[2019-07-18 02:05] VITALS: BP 125/85
[2019-07-18] MEDS: LORazepam 2 MG TABLET PO PRN ×2 (08:03→17:45)
[2019-07-18] MEDS: LamoTRIgine 100 MG TABLET PO SCH (08:03)
[2019-07-18] MEDS: PANTOPRAZOLE SODIUM 40 MG DR TABLET PO SCH (08:03)
[2019-07-18 08:04] VITALS: BP 126/77
[2019-07-18] MEDS: IBUPROFEN 400 MG TABLET PO PRN (08:04)
[2019-07-18 12:51] VITALS: BP 126/77
[2019-07-18 16:51] VITALS: BP 137/80
[2019-07-18] MEDS: QUEtiapine FUMARATE 300 MG TABLET PO SCH (20:36)
[2019-07-18 22:34] VITALS: BP 100/74
[2019-07-18] MEDS: ZOLPIDEM TARTRATE 10 MG TABLET PO PRN (22:37)
[2019-07-18] MEDS: ACETAMINOPHEN 325 MG TABLET PO PRN (22:37)
[2019-07-19 00:50] VITALS: BP 108/77
[2019-07-19] MEDS: LORazepam 2 MG TABLET PO PRN ×3 (02:21→16:34)
[2019-07-19] MEDS: MAG HYDROX/AL HYDROX/SIMETH ES 30 ML SUSPENSION UDCUP PO PRN (07:46)
[2019-07-19] MEDS: LamoTRIgine 100 MG TABLET PO SCH (08:01)
[2019-07-19] MEDS: PANTOPRAZOLE SODIUM 40 MG DR TABLET PO SCH (08:01)
[2019-07-19] MEDS: ACETAMINOPHEN 325 MG TABLET PO PRN (08:01)
[2019-07-19 08:15] VITALS: BP 135/78
[2019-07-19 16:08] VITALS: BP 111/70
[2019-07-19] MEDS: QUEtiapine FUMARATE 300 MG TABLET PO SCH (20:51)
[2019-07-20 03:19] VITALS: BP 121/78
[2019-07-20 04:10] VITALS: BP 120/78
[2019-07-20 08:00] VITALS: BP 114/77
[2019-07-20] MEDS: LORazepam 2 MG TABLET PO PRN ×2 (08:34→13:08)
[2019-07-20] MEDS: PANTOPRAZOLE SODIUM 40 MG DR TABLET PO SCH (08:34)
[2019-07-20] MEDS: LamoTRIgine 100 MG TABLET PO SCH (08:34)
[2019-07-20 20:10] VITALS: BP 116/70
[2019-07-20] MEDS: ZOLPIDEM TARTRATE 10 MG TABLET PO PRN (20:14)
[2019-07-20] MEDS: QUEtiapine FUMARATE 300 MG TABLET PO SCH (20:14)
[2019-07-20] MEDS: MAG HYDROX/AL HYDROX/SIMETH ES 30 ML SUSPENSION UDCUP PO PRN (21:41)
[2019-07-21 01:49] VITALS: BP 113/80
[2019-07-21] MEDS: MAG HYDROX/AL HYDROX/SIMETH ES 30 ML SUSPENSION UDCUP PO PRN (02:50)
[2019-07-21] MEDS: PANTOPRAZOLE SODIUM 40 MG DR TABLET PO SCH (08:12)
[2019-07-21] MEDS: LamoTRIgine 100 MG TABLET PO SCH (08:12)
[2019-07-21 08:15] VITALS: BP 123/90
[2019-07-21] MEDS ORDERED: LAMO100 PO (09:03)
[2019-07-21] MEDS ORDERED: QUET300T18 PO (09:03)
[2019-07-23] MEDS ORDERED: LITH300CRT PO (15:29)
== END 2019-07-21 13:05 | disposition home or self-care (01) | DRG 750 ==
LOC: EMS 00:18 → B3A 03:00
DX: F25.0 Schizoaffective disorder, bipolar type (principal); R45.851 Suicidal ideations; F41.9 Anxiety disorder, unspecified; F12.10 Cannabis abuse, uncomplicated; F11.10 Opioid abuse, uncomplicated; J45.909 Unspecified asthma, uncomplicated; K21.9 Gastro-esophageal reflux disease without esophagitis; D72.819 Decreased white blood cell count, unspecified; F10.10 Alcohol abuse, uncomplicated; F17.200 Nicotine dependence, unspecified, uncomplicated; I10 Essential (primary) hypertension; Z79.899 Other long term (current) drug therapy; Z91.5 Personal history of self-harm
CPT/HCPCS: 80307; 87081; G0480; Q0162

== ENCOUNTER 2020-03-14 18:35 | Inpatient (IN) | payer MEDICAID, OTHER ==
[~2020-03-14] VITALS: Ht 160 cm; Wt 61.8 kg
[~2020-03-14 18:35] MED LIST changes: +GABA-531 PO; +LORA-999 PO; +NALT50TA PO; +OLAN10TA22 PO; -PANT40TA25 PO; +PRAZ1 PO; +QUET25TA34 PO; +QUET300T18 PO
[2020-03-15] MEDS ORDERED: PNEUMOCOCCAL VACCINE POLYVALENT 0.5 ML VIAL [PPSV23] IM ONE (04:30)
[2020-03-15] MEDS: LORazepam 2 MG TABLET PO PRN (04:34)
[2020-03-15 05:00] VITALS: BP 140/85
[2020-03-15] MEDS ORDERED: CloNIDine HCL 0.1 MG TABLET PO PRN (08:30)
[2020-03-15] MEDS ORDERED: ALBUTEROL SULFATE HFA 90 MCG/PUFF 8 GM INHALER IH PRN (08:30)
[2020-03-15] MEDS ORDERED: LOPERAMIDE HCL 2 MG CAPSULE PO PRN (08:30)
[2020-03-15] MEDS ORDERED: ACETAMINOPHEN 325 MG TABLET PO PRN (08:30)
[2020-03-15] MEDS ORDERED: MAGNESIUM HYDROXIDE SUSPENSION 30 ML UDCUP PO PRN (08:30)
[2020-03-15] MEDS ORDERED: PETROLATUM,WHITE 28 GM JELLY TP PRN (08:30)
[2020-03-15] MEDS ORDERED: IBUPROFEN 400 MG TABLET PO PRN (08:30)
[2020-03-15] MEDS ORDERED: DOCUSATE SODIUM 100 MG CAPSULE PO PRN (08:30)
[2020-03-15] MEDS ORDERED: GuaiFENesin/D-METHORPHAN [SUGAR-FREE] 200-20MG/10 ML SYRUP UDCUP PO PRN (08:30)
[2020-03-15 08:39] VITALS: BP 115/85
[2020-03-15] MEDS: QUEtiapine FUMARATE 25 MG TABLET PO SCH (16:34)
[2020-03-15 16:41] VITALS: BP 127/89
[2020-03-15] MEDS: ZOLPIDEM TARTRATE 10 MG TABLET PO PRN (21:34)
[2020-03-16 08:26] VITALS: BP 135/99
[2020-03-16] MEDS: QUEtiapine FUMARATE 25 MG TABLET PO SCH ×3 (08:30→17:06)
[2020-03-16] MEDS: LORazepam 2 MG TABLET PO PRN ×2 (08:34→18:11)
[2020-03-16] MEDS ORDERED: DiphenhydrAMINE HCL 50 MG/ML VIAL ONE (08:36)
[2020-03-16] MEDS ORDERED: LORazepam 2 MG/ML VIAL ONE (08:36)
[2020-03-16] MEDS ORDERED: HALOPERIDOL LACTATE 5 MG/ML VIAL ONE ×2 (08:36→08:39)
[2020-03-16] MEDS ORDERED: HALOPERIDOL LACTATE 5 MG/ML VIAL IM ONE (08:45)
[2020-03-16] MEDS ORDERED: LORazepam 2 MG/ML VIAL IM ONE (08:45)
[2020-03-16] MEDS ORDERED: DiphenhydrAMINE HCL 50 MG/ML VIAL IM ONE (08:45)
[2020-03-16] MEDS: MAG HYDROX/AL HYDROX/SIMETH ES 30 ML SUSPENSION UDCUP PO PRN (12:46)
[2020-03-16 16:25] VITALS: BP 121/79
[2020-03-17 03:03] VITALS: BP 130/83
[2020-03-17] MEDS: QUEtiapine FUMARATE 25 MG TABLET PO SCH ×3 (08:23→16:49)
[2020-03-17] MEDS: LORazepam 2 MG TABLET PO PRN (08:23)
[2020-03-17 08:49] VITALS: BP 131/80
[2020-03-17] MEDS: NICOTINE 14 MG/24 HOUR PATCH TD PRN (18:00)
[2020-03-17] MEDS: MAG HYDROX/AL HYDROX/SIMETH ES 30 ML SUSPENSION UDCUP PO PRN ×2 (18:43→21:44)
[2020-03-17 19:51] VITALS: BP 133/83
[2020-03-17] MEDS: ONDANSETRON HCL 4 MG TABLET PO PRN (21:44)
[2020-03-17] MEDS: ZOLPIDEM TARTRATE 10 MG TABLET PO PRN (23:30)
[2020-03-18] MEDS ORDERED: ONDANSETRON HCL 4 MG TABLET PO ONE (01:30)
[2020-03-18 02:10] VITALS: BP 124/80
[2020-03-18] MEDS: QUEtiapine FUMARATE 25 MG TABLET PO SCH ×3 (08:18→16:21)
[2020-03-18] MEDS: LORazepam 2 MG TABLET PO PRN ×2 (08:18→21:00)
[2020-03-18 08:34] VITALS: BP 136/97
[2020-03-18] MEDS: MAG HYDROX/AL HYDROX/SIMETH ES 30 ML SUSPENSION UDCUP PO PRN (15:43)
[2020-03-18 16:16] VITALS: BP 133/106
[2020-03-19 00:10] VITALS: BP 118/83
[2020-03-19] MEDS: ZOLPIDEM TARTRATE 10 MG TABLET PO PRN (00:22)
[2020-03-19] MEDS: LORazepam 2 MG TABLET PO PRN ×2 (08:26→14:46)
[2020-03-19] MEDS: QUEtiapine FUMARATE 25 MG TABLET PO SCH ×3 (08:26→17:42)
[2020-03-19 08:29] VITALS: BP 138/116
[2020-03-19] MEDS: NICOTINE 14 MG/24 HOUR PATCH TD PRN (12:38)
[2020-03-19] MEDS ORDERED: QUEtiapine FUMARATE 25 MG TABLET PO SCH ×2 (13:00)
[2020-03-19 16:05] VITALS: BP 115/84
[2020-03-20 00:08] VITALS: BP 147/105
[2020-03-20] MEDS: LORazepam 2 MG TABLET PO PRN ×2 (00:18→08:24)
[2020-03-20] MEDS: ZOLPIDEM TARTRATE 10 MG TABLET PO PRN ×2 (00:18→22:12)
[2020-03-20] MEDS: OLANZapine 5 MG RAPDIS TABLET PO PRN (02:43)
[2020-03-20 08:14] VITALS: BP 132/91
[2020-03-20] MEDS: QUEtiapine FUMARATE 25 MG TABLET PO SCH ×3 (08:24→16:31)
[2020-03-20] MEDS: MAG HYDROX/AL HYDROX/SIMETH ES 30 ML SUSPENSION UDCUP PO PRN (14:34)
[2020-03-20 16:05] VITALS: BP 125/83
[2020-03-21 00:34] VITALS: BP 130/92
[2020-03-21] MEDS: LORazepam 2 MG TABLET PO PRN (00:37)
[2020-03-21] MEDS: QUEtiapine FUMARATE 25 MG TABLET PO SCH ×3 (08:22→16:18)
[2020-03-21 09:24] VITALS: BP 116/73
[2020-03-21] MEDS: NICOTINE 14 MG/24 HOUR PATCH TD PRN (10:56)
[2020-03-21] MEDS: ONDANSETRON HCL 4 MG TABLET PO PRN (12:30)
[2020-03-21] MEDS: MAG HYDROX/AL HYDROX/SIMETH ES 30 ML SUSPENSION UDCUP PO PRN (14:01)
[2020-03-21 17:02] VITALS: BP 135/94
[2020-03-22] MEDS: ZOLPIDEM TARTRATE 10 MG TABLET PO PRN ×2 (01:13→23:28)
[2020-03-22] MEDS: LORazepam 2 MG TABLET PO PRN ×3 (01:13→23:28)
[2020-03-22 01:41] VITALS: BP 138/82
[2020-03-22] MEDS: QUEtiapine FUMARATE 25 MG TABLET PO SCH ×3 (08:06→16:21)
[2020-03-22] MEDS: NICOTINE 14 MG/24 HOUR PATCH TD PRN (08:06)
[2020-03-22 08:37] VITALS: BP 132/86
[2020-03-22] MEDS: OLANZapine 5 MG RAPDIS TABLET PO PRN (13:31)
[2020-03-22 16:05] VITALS: BP 127/86
[2020-03-23 00:55] VITALS: BP 129/82
[2020-03-23] MEDS: LORazepam 2 MG TABLET PO PRN ×2 (03:35→08:44)
[2020-03-23] MEDS: QUEtiapine FUMARATE 25 MG TABLET PO SCH ×2 (08:03→12:32)
[2020-03-23 08:08] VITALS: BP 111/91
[2020-03-23] MEDS ORDERED: QUET50TA15 PO (10:40)
== END 2020-03-23 13:18 | disposition home or self-care (01) | DRG 750 ==
LOC: EMS 18:35 → B3A 23:04 → B2S 03-19 15:13
PROVIDERS: ADMIT Psychiatry & Neurology Child & Adolescent Psychiatry; ATTEND Psychiatry & Neurology Child & Adolescent Psychiatry
DX: F20.9 Schizophrenia, unspecified (principal); G44.209 Tension-type headache, unspecified, not intractable; I10 Essential (primary) hypertension; K21.9 Gastro-esophageal reflux disease without esophagitis; Z91.5 Personal history of self-harm; Z91.19 Patient's noncompliance with other medical treatment and regimen; Z28.21 Immunization not carried out because of patient refusal
CPT/HCPCS: J1200; J1630; J2060; Q0162

== ENCOUNTER 2020-03-26 18:19 | Inpatient (IN) | payer MEDICAID, OTHER ==
[~2020-03-26] VITALS: Ht 160 cm; Wt 62.6 kg
[~2020-03-26 18:19] MED LIST changes: -GABA-531 PO; -LORA-999 PO; -NALT50TA PO; -OLAN10TA22 PO; -PRAZ1 PO; -QUET25TA34 PO; -QUET300T18 PO; +QUET50TA15 PO
[2020-03-26] MEDS ORDERED: LORazepam 2 MG/ML VIAL IM ONE (19:15)
[2020-03-26] MEDS ORDERED: DiphenhydrAMINE HCL 50 MG/ML VIAL IM ONE (19:15)
[2020-03-26] MEDS ORDERED: HALOPERIDOL LACTATE 5 MG/ML VIAL IM ONE (19:15)
[2020-03-26] MEDS ORDERED: QUET25TA PO (19:23)
[2020-03-26 21:04] LABS: BASOPHILS % (AUTO) 0.6 % (0.0-2.0); HEMATOCRIT 38.7 % (36-46); HEMOGLOBIN 13.2 g/dL (12.0-16.0); LYMPHOCYTES # (AUTO) 1.6 K/uL (1.0-4.8); MEAN CORPUSCULAR HEMOGLOBIN 30.8 pg (26.0-34.0); MEAN CORPUSCULAR VOLUME 90 fL (80-100); MONOCYTES # (AUTO) 0.5 K/uL (0.1-1.0); NEUTROPHILS # (AUTO) 5.7 K/uL (1.8-7.7); NEUTROPHILS % (AUTO) 71.4 % (40.0-70.0); PLATELET COUNT (AUTO) 292 K/uL (150-450); RED BLOOD CELL COUNT(AUTO) 4.28 MIL/uL (4.00-5.20); RED CELL DISTRIBUTION WIDTH 13.9 % (11.5-14.5)
[2020-03-26 21:14] LABS: ANION GAP 5 mmol/L (8-16); CALCIUM, TOTAL 8.7 mg/dL (8.8-10.5); CARBON DIOXIDE 27 mmol/L (22-29); CHLORIDE 110 mmol/L (98-107); CREATININE 0.68 mg/dL (0.60-1.30); GLOMERULAR FILTR. RATE CALC > 60 mL/min (>60); GLUCOSE,RANDOM 122 mg/dL (70-110); POTASSIUM 3.1 mmol/L (3.5-5.1); SODIUM SERUM 142 mmol/L (136-145); UREA NITROGEN, BLOOD 9 mg/dL (7-18)
[2020-03-26 21:19] LABS: ALANINE AMINOTRANSFERASE 26 U/L (12-78); ALBUMIN 3.5 g/dL (3.4-5.0); ALKALINE PHOSPHATASE 49 U/L (46-116); ASPARTATE AMINOTRANSFERASE 25 U/L (15-37); BILIRUBIN,TOTAL 0.4 mg/dL (0.1-1.0); TOTAL PROTEIN, SERUM 6.8 g/dL (6.4-8.2)
[2020-03-26] MEDS ORDERED: POTASSIUM CHLORIDE 10% 40 MEQ/30 ML LIQUID UDCUP PO ONE (21:30)
[2020-03-27 05:09] VITALS: BP 109/76
[2020-03-27 05:31] VITALS: BP 109/76
[2020-03-27 08:09] VITALS: BP 138/89
[2020-03-27] MEDS: HALOPERIDOL 5 MG TABLET PO PRN ×2 (13:02→17:06)
[2020-03-27] MEDS ORDERED: IBUPROFEN 400 MG TABLET PO PRN (15:00)
[2020-03-27] MEDS ORDERED: GuaiFENesin/D-METHORPHAN [SUGAR-FREE] 200-20MG/10 ML SYRUP UDCUP PO PRN (15:00)
[2020-03-27] MEDS ORDERED: LOPERAMIDE HCL 2 MG CAPSULE PO PRN (15:00)
[2020-03-27] MEDS ORDERED: PETROLATUM,WHITE 28 GM JELLY TP PRN (15:00)
[2020-03-27] MEDS ORDERED: DOCUSATE SODIUM 100 MG CAPSULE PO PRN (15:00)
[2020-03-27] MEDS ORDERED: ALBUTEROL SULFATE HFA 90 MCG/PUFF 8 GM INHALER IH PRN (15:00)
[2020-03-27] MEDS ORDERED: ONDANSETRON HCL 4 MG TABLET PO PRN (15:00)
[2020-03-27] MEDS ORDERED: ACETAMINOPHEN 325 MG TABLET PO PRN (15:00)
[2020-03-27] MEDS ORDERED: MAGNESIUM HYDROXIDE SUSPENSION 30 ML UDCUP PO PRN (15:00)
[2020-03-27] MEDS ORDERED: MAG HYDROX/AL HYDROX/SIMETH ES 30 ML SUSPENSION UDCUP PO PRN (15:00)
[2020-03-27] MEDS ORDERED: CloNIDine HCL 0.1 MG TABLET PO PRN (15:00)
[2020-03-27 16:15] VITALS: BP 136/88
[2020-03-27] MEDS: QUEtiapine FUMARATE 25 MG TABLET PO SCH (18:34)
[2020-03-27] MEDS: LORazepam 1 MG TABLET PO PRN ×2 (18:34→23:50)
[2020-03-27] MEDS: NICOTINE 14 MG/24 HOUR PATCH TD PRN (18:36)
[2020-03-27] MEDS: ZOLPIDEM TARTRATE 10 MG TABLET PO PRN (23:50)
[2020-03-28 02:13] VITALS: BP 128/82
[2020-03-28] MEDS: HALOPERIDOL 5 MG TABLET PO PRN (02:23)
[2020-03-28] MEDS: QUEtiapine FUMARATE 25 MG TABLET PO SCH ×3 (08:07→16:07)
[2020-03-28] MEDS: LORazepam 1 MG TABLET PO PRN ×3 (08:08→22:26)
[2020-03-28 08:15] VITALS: BP 136/92
[2020-03-28 16:08] VITALS: BP 140/89
[2020-03-28] MEDS: ZOLPIDEM TARTRATE 10 MG TABLET PO PRN (20:03)
[2020-03-29 01:13] VITALS: BP 128/84
[2020-03-29] MEDS: HALOPERIDOL 5 MG TABLET PO PRN ×2 (01:32→23:52)
[2020-03-29] MEDS: LORazepam 1 MG TABLET PO PRN ×2 (03:26→08:16)
[2020-03-29 08:08] VITALS: BP 132/82
[2020-03-29] MEDS: QUEtiapine FUMARATE 25 MG TABLET PO SCH ×3 (08:16→17:00)
[2020-03-29] MEDS: NICOTINE 14 MG/24 HOUR PATCH TD PRN (09:12)
[2020-03-29 16:03] VITALS: BP 138/95
[2020-03-29] MEDS ORDERED: HydrOXYzine HCL 50 MG TABLET PO PRN (16:15)
[2020-03-29] MEDS ORDERED: HydrOXYzine PAMOATE 50 MG CAPSULE PO PRN (17:15)
[2020-03-29] MEDS ORDERED: TraZODone HCL 100 MG TABLET PO PRN (17:15)
[2020-03-29] MEDS: HydrOXYzine PAMOATE 50 MG CAPSULE PO PRN (23:16)
[2020-03-30] VITALS: BP 123/83
[2020-03-30 07:42] VITALS: BP 100/60
[2020-03-30 08:08] VITALS: BP 122/86
[2020-03-30] MEDS: QUEtiapine FUMARATE 25 MG TABLET PO SCH ×2 (09:00→13:00)
[2020-03-30] MEDS: HydrOXYzine PAMOATE 50 MG CAPSULE PO PRN (10:52)
[2020-03-30] MEDS: HALOPERIDOL 5 MG TABLET PO PRN (11:08)
== END 2020-03-30 21:47 | disposition home or self-care (01) | DRG 750 ==
LOC: EMS 18:24 → B3A 03-27 01:25
PROVIDERS: ADMIT Psychiatry & Neurology Child & Adolescent Psychiatry; ATTEND Psychiatry & Neurology Child & Adolescent Psychiatry
DX: F25.1 Schizoaffective disorder, depressive type (principal); E87.6 Hypokalemia; I10 Essential (primary) hypertension; R73.9 Hyperglycemia, unspecified; Z20.828 Contact with and (suspected) exposure to other viral communicable diseases
CPT/HCPCS: 87081; 87426; G0480; J1200; J1630; J2060

== ENCOUNTER 2020-04-01 00:42 | Inpatient (IN) | payer MEDICAID, OTHER ==
[~2020-04-01] VITALS: Ht 160 cm; Wt 61.9 kg
[~2020-04-01 00:42] MED LIST changes: +QUET25TA PO; -QUET50TA15 PO
[2020-04-01] MEDS ORDERED: CloNIDine HCL 0.1 MG TABLET PO PRN (08:00)
[2020-04-01] MEDS ORDERED: MAGNESIUM HYDROXIDE SUSPENSION 30 ML UDCUP PO PRN (08:00)
[2020-04-01] MEDS ORDERED: PETROLATUM,WHITE 28 GM JELLY TP PRN (08:00)
[2020-04-01] MEDS ORDERED: ONDANSETRON HCL 4 MG TABLET PO PRN (08:00)
[2020-04-01] MEDS ORDERED: IBUPROFEN 400 MG TABLET PO PRN (08:00)
[2020-04-01] MEDS ORDERED: MAG HYDROX/AL HYDROX/SIMETH ES 30 ML SUSPENSION UDCUP PO PRN (08:00)
[2020-04-01] MEDS ORDERED: ACETAMINOPHEN 325 MG TABLET PO PRN (08:00)
[2020-04-01] MEDS ORDERED: GuaiFENesin/D-METHORPHAN [SUGAR-FREE] 200-20MG/10 ML SYRUP UDCUP PO PRN (08:00)
[2020-04-01] MEDS ORDERED: LOPERAMIDE HCL 2 MG CAPSULE PO PRN (08:00)
[2020-04-01] MEDS ORDERED: ALBUTEROL SULFATE HFA 90 MCG/PUFF 8 GM INHALER IH PRN (08:00)
[2020-04-01] MEDS ORDERED: LORazepam 2 MG/ML VIAL ONE (08:58)
[2020-04-01] MEDS ORDERED: DiphenhydrAMINE HCL 50 MG/ML VIAL IM ONE (09:00)
[2020-04-01] MEDS ORDERED: HALOPERIDOL LACTATE 5 MG/ML VIAL IM ONE (09:00)
[2020-04-01] MEDS ORDERED: LORazepam 2 MG/ML VIAL IM ONE (09:00)
[2020-04-01 09:27] VITALS: BP 146/99
[2020-04-01] MEDS: CarBAMazepine 200 MG TABLET PO SCH ×2 (10:15→17:00)
[2020-04-01] MEDS: NICOTINE 14 MG/24 HOUR PATCH TD PRN (10:45)
[2020-04-01] MEDS: QUEtiapine FUMARATE 25 MG TABLET PO SCH ×2 (12:03→17:00)
[2020-04-01] MEDS ORDERED: PNEUMOCOCCAL VACCINE POLYVALENT 0.5 ML VIAL [PPSV23] IM ONE (12:30)
[2020-04-01 16:14] VITALS: BP 111/78
[2020-04-02 01:37] VITALS: BP 104/71
[2020-04-02] MEDS: LORazepam 2 MG TABLET PO PRN ×2 (03:46→18:42)
[2020-04-02] MEDS: DOCUSATE SODIUM 100 MG CAPSULE PO PRN (06:43)
[2020-04-02 08:24] VITALS: BP 127/82
[2020-04-02] MEDS: QUEtiapine FUMARATE 25 MG TABLET PO SCH ×4 (08:50→17:00)
[2020-04-02] MEDS: CarBAMazepine 200 MG TABLET PO SCH ×2 (08:51→17:00)
[2020-04-02 16:13] VITALS: BP 129/88
[2020-04-02] MEDS: ZOLPIDEM TARTRATE 10 MG TABLET PO PRN (23:49)
[2020-04-03 01:06] VITALS: BP 122/86
[2020-04-03] MEDS: LORazepam 2 MG TABLET PO PRN ×2 (01:38→09:02)
[2020-04-03] MEDS: QUEtiapine FUMARATE 25 MG TABLET PO SCH ×2 (08:30→13:00)
[2020-04-03] MEDS: CarBAMazepine 200 MG TABLET PO SCH (08:31)
[2020-04-03 09:05] VITALS: BP 110/68
[2020-04-03] MEDS: NICOTINE 14 MG/24 HOUR PATCH TD PRN (09:13)
[2020-04-03 16:15] VITALS: BP 134/86
[2020-04-03] MEDS: HydrOXYzine PAMOATE 50 MG CAPSULE PO PRN (16:40)
[2020-04-03] MEDS ORDERED: OLANZapine 5 MG TABLET ONE (20:27)
[2020-04-03] MEDS: TraZODone HCL 100 MG TABLET PO SCH (21:00)
[2020-04-03] MEDS ORDERED: OLANZapine 5 MG TABLET PO SCH (21:00)
[2020-04-03] MEDS ORDERED: OLANZapine 2.5 MG TABLET PO SCH (21:00)
[2020-04-03] MEDS ORDERED: DiphenhydrAMINE HCL 50 MG/ML VIAL ONE (21:09)
[2020-04-03] MEDS ORDERED: HALOPERIDOL LACTATE 5 MG/ML VIAL ONE (21:09)
[2020-04-03] MEDS ORDERED: LORazepam 2 MG/ML VIAL ONE (21:09)
[2020-04-03] MEDS ORDERED: DiphenhydrAMINE HCL 50 MG/ML VIAL IM ONE (21:15)
[2020-04-03] MEDS ORDERED: LORazepam 2 MG/ML VIAL IM ONE (21:15)
[2020-04-03] MEDS ORDERED: HALOPERIDOL LACTATE 5 MG/ML VIAL IM ONE (21:15)
[2020-04-04 04:11] VITALS: BP 127/74
[2020-04-04] MEDS: LURASIDONE HCL 20 MG TABLET PO SCH (06:32)
[2020-04-04 08:28] VITALS: BP 133/80
[2020-04-04] MEDS: NICOTINE 21 MG/24 HOUR PATCH TD PRN (12:23)
[2020-04-04 16:10] VITALS: BP 128/78
[2020-04-04 16:47] VITALS: BP 129/80
[2020-04-04] MEDS: HydrOXYzine PAMOATE 50 MG CAPSULE PO PRN (16:47)
[2020-04-04] MEDS: TraZODone HCL 100 MG TABLET PO SCH (21:05)
[2020-04-04] MEDS: OLANZapine 2.5 MG TABLET PO SCH (21:05)
[2020-04-04] MEDS: HYPROMELLOSE 0.5% 15 ML OPHTHALMIC SOLUTION OS PRN (21:05)
[2020-04-04] MEDS: DOCUSATE SODIUM 100 MG CAPSULE PO PRN (21:50)
[2020-04-04] MEDS: ZOLPIDEM TARTRATE 10 MG TABLET PO PRN (22:17)
[2020-04-05] MEDS: HydrOXYzine PAMOATE 50 MG CAPSULE PO PRN ×2 (02:19→09:27)
[2020-04-05 03:33] VITALS: BP 127/85
[2020-04-05] MEDS: HALOPERIDOL 5 MG TABLET PO PRN ×2 (03:47→12:03)
[2020-04-05] MEDS: LURASIDONE HCL 20 MG TABLET PO SCH (06:51)
[2020-04-05 08:14] VITALS: BP 138/85
[2020-04-05] MEDS: OLANZapine 2.5 MG TABLET PO SCH ×3 (08:32→23:42)
[2020-04-05 16:06] VITALS: BP 133/87
[2020-04-05] MEDS ORDERED: DiphenhydrAMINE HCL 50 MG/ML VIAL IM ONE (16:15)
[2020-04-05] MEDS ORDERED: LORazepam 2 MG/ML VIAL IM ONE (16:15)
[2020-04-05] MEDS ORDERED: HALOPERIDOL LACTATE 5 MG/ML VIAL IM ONE (16:15)
[2020-04-05] MEDS: TraZODone HCL 100 MG TABLET PO SCH ×2 (21:00→23:40)
[2020-04-06 01:20] VITALS: BP 132/81
[2020-04-06] MEDS: HALOPERIDOL 5 MG TABLET PO PRN ×4 (01:24→21:16)
[2020-04-06] MEDS: ZOLPIDEM TARTRATE 10 MG TABLET PO PRN (01:24)
[2020-04-06 02:43] VITALS: BP 128/82
[2020-04-06] MEDS: LURASIDONE HCL 20 MG TABLET PO SCH (06:38)
[2020-04-06 08:09] LABS: CHOL/HDL RATIO 2.7 (3.9-5.7)
[2020-04-06] MEDS: OLANZapine 2.5 MG TABLET PO SCH ×2 (08:09→20:08)
[2020-04-06 08:57] VITALS: BP 113/78
[2020-04-06] MEDS: NICOTINE 21 MG/24 HOUR PATCH TD PRN (15:47)
[2020-04-06 16:11] VITALS: BP 119/82
[2020-04-06] MEDS: TraZODone HCL 100 MG TABLET PO SCH (20:08)
[2020-04-06] MEDS: DOCUSATE SODIUM 100 MG CAPSULE PO PRN (20:08)
[2020-04-06] MEDS: HydrOXYzine PAMOATE 50 MG CAPSULE PO PRN (20:37)
[2020-04-07 00:01] VITALS: BP 136/89
[2020-04-07] MEDS: ZOLPIDEM TARTRATE 10 MG TABLET PO PRN ×2 (01:12→21:34)
[2020-04-07] MEDS: HALOPERIDOL 5 MG TABLET PO PRN ×3 (05:07→17:45)
[2020-04-07] MEDS: LURASIDONE HCL 20 MG TABLET PO SCH (06:47)
[2020-04-07] MEDS: OLANZapine 2.5 MG TABLET PO SCH ×2 (08:06→20:42)
[2020-04-07] MEDS: MULTIVITAMINS WITH MINERALS, THERAPEUTIC TABLET PO SCH (08:06)
[2020-04-07] MEDS: HydrOXYzine PAMOATE 50 MG CAPSULE PO PRN ×2 (08:06→15:11)
[2020-04-07 08:07] VITALS: BP 123/73
[2020-04-07 08:53] LABS: APPEARANCE,URINE CLEAR (CLEAR); BILIRUBIN,URINE NEGATIVE (NEGATIVE); GLUCOSE, URINE (UA) NEGATIVE (NEGATIVE); KETONES,URINE NEGATIVE (NEGATIVE); LEUKOCYTE ESTERASE ,URINE NEGATIVE (NEGATIVE); NITRATE,URINE NEGATIVE (NEGATIVE); OCCULT BLOOD,URINE NEGATIVE (NEGATIVE); PH,URINE 5.5 (5.0-8.0); PROTEIN,URINE NEGATIVE (NEGATIVE); UROBILINOGEN,URINE 0.2 mg/dL (<=1.0)
[2020-04-07 16:22] VITALS: BP 122/93
[2020-04-07] MEDS: TraZODone HCL 100 MG TABLET PO SCH (20:42)
[2020-04-07] MEDS: NICOTINE 21 MG/24 HOUR PATCH TD PRN (20:46)
[2020-04-08] MEDS: HALOPERIDOL 5 MG TABLET PO PRN ×4 (02:19→20:35)
[2020-04-08 03:45] VITALS: BP 104/71
[2020-04-08] MEDS: HYPROMELLOSE 0.5% 15 ML OPHTHALMIC SOLUTION OS PRN ×2 (06:30→08:04)
[2020-04-08] MEDS: LURASIDONE HCL 20 MG TABLET PO SCH (06:49)
[2020-04-08] MEDS: MULTIVITAMINS WITH MINERALS, THERAPEUTIC TABLET PO SCH (08:01)
[2020-04-08] MEDS: OLANZapine 2.5 MG TABLET PO SCH ×2 (08:01→20:08)
[2020-04-08 08:21] VITALS: BP 120/85
[2020-04-08] MEDS: HydrOXYzine PAMOATE 50 MG CAPSULE PO PRN ×2 (12:55→21:07)
[2020-04-08 16:13] VITALS: BP 130/89
[2020-04-08] MEDS: DOCUSATE SODIUM 100 MG CAPSULE PO PRN (16:17)
[2020-04-08] MEDS: TraZODone HCL 100 MG TABLET PO SCH (20:07)
[2020-04-08] MEDS: ZOLPIDEM TARTRATE 10 MG TABLET PO PRN (21:07)
[2020-04-09] MEDS: HYPROMELLOSE 0.5% 15 ML OPHTHALMIC SOLUTION OS PRN ×2 (00:16→09:18)
[2020-04-09 00:19] VITALS: BP 135/85
[2020-04-09] MEDS: HALOPERIDOL 5 MG TABLET PO PRN ×3 (03:34→18:29)
[2020-04-09] MEDS: HydrOXYzine PAMOATE 50 MG CAPSULE PO PRN ×3 (03:38→16:52)
[2020-04-09] MEDS: LURASIDONE HCL 20 MG TABLET PO SCH (06:16)
[2020-04-09 08:21] VITALS: BP 114/95
[2020-04-09] MEDS: MULTIVITAMINS WITH MINERALS, THERAPEUTIC TABLET PO SCH (09:19)
[2020-04-09] MEDS: OLANZapine 2.5 MG TABLET PO SCH ×2 (09:19→20:09)
[2020-04-09] MEDS: NICOTINE 21 MG/24 HOUR PATCH TD PRN (16:52)
[2020-04-09 17:05] VITALS: BP 134/74
[2020-04-09] MEDS: TraZODone HCL 100 MG TABLET PO SCH (20:08)
[2020-04-09] MEDS: ZOLPIDEM TARTRATE 10 MG TABLET PO PRN (22:30)
[2020-04-10 01:10] VITALS: BP 126/72
[2020-04-10] MEDS: HALOPERIDOL 5 MG TABLET PO PRN ×4 (02:44→19:33)
[2020-04-10] MEDS: HYPROMELLOSE 0.5% 15 ML OPHTHALMIC SOLUTION OS PRN (02:44)
[2020-04-10] MEDS: HydrOXYzine PAMOATE 50 MG CAPSULE PO PRN ×3 (05:53→21:03)
[2020-04-10] MEDS: DOCUSATE SODIUM 100 MG CAPSULE PO PRN (05:53)
[2020-04-10] MEDS: LURASIDONE HCL 20 MG TABLET PO SCH (06:13)
[2020-04-10] MEDS: MULTIVITAMINS WITH MINERALS, THERAPEUTIC TABLET PO SCH (08:25)
[2020-04-10] MEDS: OLANZapine 2.5 MG TABLET PO SCH ×2 (08:26→20:57)
[2020-04-10 08:32] VITALS: BP 121/81
[2020-04-10] MEDS ORDERED: HYPROMELLOSE 0.5% 15 ML OPHTHALMIC SOLUTION OS PRN (15:30)
[2020-04-10 16:27] VITALS: BP 132/87
[2020-04-10] MEDS: NICOTINE 21 MG/24 HOUR PATCH TD PRN (16:51)
[2020-04-10] MEDS ORDERED: OLAN2.5T3 PO (20:19)
[2020-04-10] MEDS ORDERED: TRAZ-257 PO (20:19)
[2020-04-10] MEDS ORDERED: LURA20TA PO (20:19)
[2020-04-10] MEDS: TraZODone HCL 100 MG TABLET PO SCH (20:57)
[2020-04-10] MEDS: ZOLPIDEM TARTRATE 10 MG TABLET PO PRN (22:42)
[2020-04-11 01:22] VITALS: BP 122/78
[2020-04-11] MEDS: LURASIDONE HCL 20 MG TABLET PO SCH (06:44)
[2020-04-11] MEDS: MULTIVITAMINS WITH MINERALS, THERAPEUTIC TABLET PO SCH (07:54)
[2020-04-11] MEDS: HydrOXYzine PAMOATE 50 MG CAPSULE PO PRN (07:54)
[2020-04-11] MEDS: OLANZapine 2.5 MG TABLET PO SCH (07:54)
[2020-04-11 08:29] VITALS: BP 115/80
[2020-04-11] MEDS: DOCUSATE SODIUM 100 MG CAPSULE PO PRN (14:41)
== END 2020-04-11 14:55 | disposition home or self-care (01) | DRG 750 ==
LOC: EMS 00:42 → B3A 08:33
PROVIDERS: ADMIT Psychiatry & Neurology Child & Adolescent Psychiatry; ATTEND Psychiatry & Neurology Child & Adolescent Psychiatry
DX: F25.1 Schizoaffective disorder, depressive type (principal); E87.6 Hypokalemia; F31.9 Bipolar disorder, unspecified; I10 Essential (primary) hypertension; R45.850 Homicidal ideations; F41.9 Anxiety disorder, unspecified; F19.10 Other psychoactive substance abuse, uncomplicated; Z91.19 Patient's noncompliance with other medical treatment and regimen; Z59.0 Homelessness
CPT/HCPCS: 87081; J1200; J1630; J2060

== ENCOUNTER 2022-05-18 08:59 | Inpatient (IN) | payer MEDICAID, OTHER ==
[~2022-05-18] VITALS: Ht 157.5 cm; Wt 60.6 kg
[~2022-05-18 08:59] MED LIST changes: +LURA20TA PO; +OLAN2.5T3 PO; -QUET25TA PO; +TRAZ-257 PO
[2022-05-18] MEDS ORDERED: DiphenhydrAMINE HCL 50 MG/ML VIAL ONE (11:35)
[2022-05-18] MEDS ORDERED: LORazepam 2 MG/ML VIAL ONE (11:35)
[2022-05-18] MEDS ORDERED: HALOPERIDOL LACTATE 5 MG/ML VIAL ONE (11:35)
[2022-05-18] MEDS ORDERED: DiphenhydrAMINE HCL 50 MG/ML VIAL IM ONE (11:45)
[2022-05-18] MEDS ORDERED: HALOPERIDOL LACTATE 5 MG/ML VIAL IM ONE (11:45)
[2022-05-18] MEDS ORDERED: LORazepam 2 MG/ML VIAL IM ONE (11:45)
[2022-05-18 12:34] LABS: BASOPHILS % (AUTO) 0.4 % (0.0-2.0); EOSINOPHILS % (AUTO) 1.5 % (1.0-6.0); HEMATOCRIT 43.1 % (36-46); HEMOGLOBIN 14.1 g/dL (12.0-16.0); LYMPHOCYTES # (AUTO) 1.2 K/uL (1.0-4.8); MEAN CORPUSCULAR HEMOGLOBIN 29.5 pg (26.0-34.0); MEAN CORPUSCULAR HGB CONC 32.6 G/dL (31.0-37.0); MEAN CORPUSCULAR VOLUME 91 fL (80-100); MONOCYTES # (AUTO) 0.5 K/uL (0.1-1.0); MONOCYTES % (AUTO) 6.5 % (2.0-9.0); NEUTROPHILS # (AUTO) 5.7 K/uL (1.8-7.7); NEUTROPHILS % (AUTO) 75.6 % (40.0-70.0); PLATELET COUNT (AUTO) 341 K/uL (150-450); RED BLOOD CELL COUNT(AUTO) 4.77 MIL/uL (4.00-5.20); RED CELL DISTRIBUTION WIDTH 13.5 % (11.5-14.5)
[2022-05-18 12:42] LABS: ANION GAP 7 mmol/L (8-16); CALCIUM, TOTAL 9.6 mg/dL (8.8-10.5); CARBON DIOXIDE 29 mmol/L (22-29); CHLORIDE 104 mmol/L (98-107); CREATININE 0.87 mg/dL (0.60-1.30); GLUCOSE,RANDOM 104 mg/dL (70-110); POTASSIUM 3.2 mmol/L (3.5-5.1); SODIUM SERUM 140 mmol/L (136-145); UREA NITROGEN, BLOOD 9 mg/dL (7-18)
[2022-05-18 12:43] LABS: GLOMERULAR FILTR. RATE CALC > 60 mL/min (>60)
[2022-05-18 12:54] LABS: ALANINE AMINOTRANSFERASE 26 U/L (12-78); ALKALINE PHOSPHATASE 65 U/L (46-116); ASPARTATE AMINOTRANSFERASE 45 U/L (15-37); BILIRUBIN,TOTAL 0.9 mg/dL (0.1-1.0); HCG,QUANTITATIVE < 1 mIU/mL (0-6); TOTAL PROTEIN, SERUM 7.5 g/dL (6.4-8.2)
[2022-05-18] MEDS ORDERED: POTASSIUM CHLORIDE 20 MEQ ER TABLET PO ONE (13:45)
[2022-05-18 14:16] LABS: COVID AG,FIA SOURCE NASOPHARYNGEAL
[2022-05-18] MEDS: LORazepam 2 MG TABLET PO PRN (19:32)
[2022-05-19 03:24] VITALS: BP 115/87
[2022-05-19] MEDS ORDERED: INFLUENZA VIRUS VACCINE QVS 2022-23 (6MO+)/PF 60 MCG/0.5 ML SYRINGE IM. ONE (05:00)
[2022-05-19] MEDS ORDERED: PNEUMOCOCCAL VACCINE POLYVALENT 0.5 ML VIAL [PPSV23] IM. ONE (05:00)
[2022-05-19] MEDS ORDERED: QUET300T2 PO (05:59)
[2022-05-19] MEDS ORDERED: BUSP10TA23 PO (05:59)
[2022-05-19] MEDS ORDERED: QUET25TA PO (05:59)
[2022-05-19 08:26] VITALS: BP 109/79
[2022-05-19] MEDS: LORazepam 2 MG TABLET PO PRN ×2 (08:55→23:09)
[2022-05-19] MEDS: ZOLPIDEM TARTRATE 10 MG TABLET PO PRN (20:31)
[2022-05-19] MEDS ORDERED: CloNIDine HCL 0.1 MG TABLET PO PRN (21:30)
[2022-05-19] MEDS ORDERED: DOCUSATE SODIUM 100 MG CAPSULE PO PRN (21:30)
[2022-05-19] MEDS ORDERED: IBUPROFEN 600 MG TABLET PO PRN (21:30)
[2022-05-19] MEDS ORDERED: LOPERAMIDE HCL 2 MG CAPSULE PO PRN (21:30)
[2022-05-19] MEDS ORDERED: ONDANSETRON HCL 4 MG TABLET PO PRN (21:30)
[2022-05-19] MEDS ORDERED: ACETAMINOPHEN 325 MG TABLET PO PRN (21:30)
[2022-05-19] MEDS ORDERED: ALBUTEROL SULFATE HFA 90 MCG/PUFF 8 GM INHALER IH PRN (21:30)
[2022-05-19] MEDS ORDERED: OMEPRAZOLE 20 MG CAPSULE PO PRN (21:30)
[2022-05-19] MEDS ORDERED: PETROLATUM,WHITE 28 GM JELLY TP PRN (21:30)
[2022-05-19] MEDS ORDERED: BACITRACIN 28 GM OINTMENT TP PRN (21:30)
[2022-05-19] MEDS ORDERED: MAGNESIUM HYDROXIDE SUSPENSION 30 ML UDCUP PO PRN (21:30)
[2022-05-19] MEDS ORDERED: BENZOCAINE/MENTHOL LOZENGE PO PRN (21:30)
[2022-05-20 03:30] VITALS: BP 125/77
[2022-05-20 07:31] LABS: ANION GAP 10 mmol/L (8-16); CALCIUM, TOTAL 9.1 mg/dL (8.8-10.5); CARBON DIOXIDE 27 mmol/L (22-29); CHLORIDE 102 mmol/L (98-107); CREATININE 0.56 mg/dL (0.60-1.30); GLUCOSE,RANDOM 95 mg/dL (70-110); POTASSIUM 3.9 mmol/L (3.5-5.1); SODIUM SERUM 139 mmol/L (136-145); UREA NITROGEN, BLOOD 7 mg/dL (7-18)
[2022-05-20 07:33] LABS: GLOMERULAR FILTR. RATE CALC > 60 mL/min (>60)
[2022-05-20 08:16] VITALS: BP 121/91
[2022-05-20] MEDS: LORazepam 2 MG TABLET PO PRN ×2 (08:27→17:40)
[2022-05-20] MEDS ORDERED: QUEtiapine FUMARATE 200 MG TABLET PO SCH (21:00)
[2022-05-20 21:11] VITALS: BP 128/84
[2022-05-20] MEDS: RisperiDONE 3 MG TABLET PO SCH (21:13)
[2022-05-20] MEDS: DIVALPROEX SODIUM 500 MG DR TABLET PO SCH (21:13)
[2022-05-21 01:40] VITALS: BP 130/86
[2022-05-21] MEDS ORDERED: DiphenhydrAMINE HCL 50 MG/ML VIAL IM ONE ×2 (01:45→08:00)
[2022-05-21] MEDS ORDERED: HALOPERIDOL LACTATE 5 MG/ML VIAL IM ONE ×2 (01:45→08:00)
[2022-05-21] MEDS ORDERED: LORazepam 2 MG/ML VIAL IM ONE ×2 (01:45→08:00)
[2022-05-21] MEDS ORDERED: LORazepam 2 MG/ML VIAL ONE (01:46)
[2022-05-21] MEDS ORDERED: DiphenhydrAMINE HCL 50 MG/ML VIAL ONE (01:46)
[2022-05-21 02:30] VITALS: BP 122/86
[2022-05-21] MEDS: LORazepam 2 MG TABLET PO PRN ×2 (04:10→17:33)
[2022-05-21] MEDS: HALOPERIDOL 5 MG TABLET PO PRN (06:49)
[2022-05-21 08:25] VITALS: BP 124/86
[2022-05-21 09:00] VITALS: BP 119/78
[2022-05-21] MEDS: DIVALPROEX SODIUM 500 MG DR TABLET PO SCH ×2 (09:00→21:05)
[2022-05-21] MEDS: LITHIUM CARBONATE 300 MG CAPSULE PO SCH ×2 (09:00→17:32)
[2022-05-21] MEDS: RisperiDONE 3 MG TABLET PO SCH ×2 (09:36→21:05)
[2022-05-21] MEDS: QUEtiapine FUMARATE 200 MG TABLET PO SCH (17:33)
[2022-05-21] MEDS: ZOLPIDEM TARTRATE 10 MG TABLET PO PRN (21:04)
[2022-05-21 21:47] VITALS: BP 117/73
[2022-05-22] MEDS: LORazepam 2 MG TABLET PO PRN ×3 (01:22→22:45)
[2022-05-22] MEDS: HALOPERIDOL 5 MG TABLET PO PRN ×2 (01:22→22:45)
[2022-05-22 08:00] VITALS: BP 118/82
[2022-05-22] MEDS: DIVALPROEX SODIUM 500 MG DR TABLET PO SCH ×2 (08:27→20:23)
[2022-05-22] MEDS: QUEtiapine FUMARATE 200 MG TABLET PO SCH ×2 (08:27→16:54)
[2022-05-22] MEDS: LITHIUM CARBONATE 300 MG CAPSULE PO SCH ×2 (08:27→16:54)
[2022-05-22] MEDS: RisperiDONE 3 MG TABLET PO SCH ×2 (08:27→20:23)
[2022-05-22] MEDS: MAG HYDROX/AL HYDROX/SIMETH ES 30 ML SUSPENSION UDCUP PO PRN (20:41)
[2022-05-22 20:52] VITALS: BP 115/80
[2022-05-22] MEDS: ZOLPIDEM TARTRATE 10 MG TABLET PO PRN (21:32)
[2022-05-23 08:00] VITALS: BP 116/76
[2022-05-23] MEDS: RisperiDONE 3 MG TABLET PO SCH ×2 (08:27→21:00)
[2022-05-23] MEDS: LITHIUM CARBONATE 300 MG CAPSULE PO SCH ×2 (08:27→16:01)
[2022-05-23] MEDS: LORazepam 2 MG TABLET PO PRN ×2 (08:27→15:35)
[2022-05-23] MEDS: QUEtiapine FUMARATE 200 MG TABLET PO SCH ×2 (08:27→16:01)
[2022-05-23] MEDS: DIVALPROEX SODIUM 500 MG DR TABLET PO SCH ×2 (08:28→21:00)
[2022-05-24] MEDS: LITHIUM CARBONATE 300 MG CAPSULE PO SCH ×2 (08:03→18:13)
[2022-05-24] MEDS: QUEtiapine FUMARATE 200 MG TABLET PO SCH ×2 (08:04→18:13)
[2022-05-24] MEDS: RisperiDONE 3 MG TABLET PO SCH ×2 (08:04→20:18)
[2022-05-24] MEDS: DIVALPROEX SODIUM 500 MG DR TABLET PO SCH ×2 (08:04→20:18)
[2022-05-24] MEDS: LORazepam 2 MG TABLET PO PRN ×2 (08:22→18:13)
[2022-05-24 08:33] VITALS: BP 116/68
[2022-05-24 20:05] VITALS: BP 119/79
[2022-05-24] MEDS: ZOLPIDEM TARTRATE 10 MG TABLET PO PRN (22:38)
[2022-05-25 03:25] VITALS: BP 115/78
[2022-05-25] MEDS: LORazepam 2 MG TABLET PO PRN (03:29)
[2022-05-25] MEDS: HALOPERIDOL 5 MG TABLET PO PRN (03:33)
[2022-05-25 08:13] VITALS: BP 124/90
[2022-05-25 08:26] LABS: GLUCOMETER DEV NAME(LOC) POC.BV
[2022-05-25] MEDS: QUEtiapine FUMARATE 200 MG TABLET PO SCH ×2 (08:46→17:09)
[2022-05-25] MEDS: RisperiDONE 3 MG TABLET PO SCH ×2 (08:46→20:07)
[2022-05-25] MEDS: LITHIUM CARBONATE 300 MG CAPSULE PO SCH ×2 (08:46→17:08)
[2022-05-25] MEDS: DIVALPROEX SODIUM 500 MG DR TABLET PO SCH ×2 (08:47→20:07)
[2022-05-26] MEDS: MAG HYDROX/AL HYDROX/SIMETH ES 30 ML SUSPENSION UDCUP PO PRN (01:31)
[2022-05-26 06:25] VITALS: BP 124/87
[2022-05-26 08:05] VITALS: BP 119/84
[2022-05-26] MEDS: LITHIUM CARBONATE 300 MG CAPSULE PO SCH ×2 (08:18→16:08)
[2022-05-26] MEDS: DIVALPROEX SODIUM 500 MG DR TABLET PO SCH ×2 (08:18→20:22)
[2022-05-26] MEDS: QUEtiapine FUMARATE 200 MG TABLET PO SCH ×2 (08:18→16:08)
[2022-05-26] MEDS: RisperiDONE 3 MG TABLET PO SCH ×2 (08:20→20:22)
[2022-05-26] MEDS: LORazepam 2 MG TABLET PO PRN (19:08)
[2022-05-26] MEDS: HALOPERIDOL 5 MG TABLET PO PRN (19:08)
[2022-05-26 23:14] VITALS: BP 120/85
[2022-05-26] MEDS: ZOLPIDEM TARTRATE 10 MG TABLET PO PRN (23:15)
[2022-05-26 23:24] LABS: LITHIUM 0.8 mmol/L (0.60-1.20)
[2022-05-27] MEDS: MAG HYDROX/AL HYDROX/SIMETH ES 30 ML SUSPENSION UDCUP PO PRN (06:37)
[2022-05-27] MEDS: QUEtiapine FUMARATE 200 MG TABLET PO SCH ×2 (08:07→16:04)
[2022-05-27] MEDS: RisperiDONE 3 MG TABLET PO SCH ×2 (08:07→20:09)
[2022-05-27] MEDS: LORazepam 2 MG TABLET PO PRN ×3 (08:07→17:38)
[2022-05-27] MEDS: DIVALPROEX SODIUM 500 MG DR TABLET PO SCH ×2 (08:07→20:09)
[2022-05-27] MEDS: LITHIUM CARBONATE 300 MG CAPSULE PO SCH ×2 (08:07→16:04)
[2022-05-27 08:29] VITALS: BP 127/88
[2022-05-27] MEDS ORDERED: HALOPERIDOL LACTATE 5 MG/ML VIAL IM ONE (18:30)
[2022-05-27] MEDS ORDERED: LACTULOSE 20 GM/30 ML SOLUTION UDCUP PO ONE (18:45)
[2022-05-27 20:00] VITALS: BP 125/90
[2022-05-28] MEDS: ZOLPIDEM TARTRATE 10 MG TABLET PO PRN ×3 (02:25→23:23)
[2022-05-28] MEDS: LORazepam 2 MG TABLET PO PRN ×2 (08:11→16:12)
[2022-05-28] MEDS: QUEtiapine FUMARATE 200 MG TABLET PO SCH ×2 (08:11→16:11)
[2022-05-28] MEDS: RisperiDONE 3 MG TABLET PO SCH ×2 (08:11→20:05)
[2022-05-28] MEDS: LITHIUM CARBONATE 300 MG CAPSULE PO SCH ×2 (08:11→16:11)
[2022-05-28] MEDS: DIVALPROEX SODIUM 500 MG DR TABLET PO SCH ×2 (08:11→20:05)
[2022-05-28 08:15] VITALS: BP 123/74
[2022-05-28 21:02] VITALS: BP 115/82
[2022-05-29] MEDS: RisperiDONE 3 MG TABLET PO SCH ×2 (08:04→20:16)
[2022-05-29] MEDS: LITHIUM CARBONATE 300 MG CAPSULE PO SCH ×2 (08:04→16:05)
[2022-05-29] MEDS: DIVALPROEX SODIUM 500 MG DR TABLET PO SCH ×2 (08:04→20:16)
[2022-05-29] MEDS: QUEtiapine FUMARATE 200 MG TABLET PO SCH ×2 (08:04→16:05)
[2022-05-29 08:18] VITALS: BP 108/75
[2022-05-29] MEDS: LORazepam 2 MG TABLET PO PRN (15:26)
[2022-05-29 20:23] VITALS: BP 123/87
[2022-05-30] MEDS: LITHIUM CARBONATE 300 MG CAPSULE PO SCH ×2 (08:12→17:47)
[2022-05-30] MEDS: QUEtiapine FUMARATE 200 MG TABLET PO SCH ×2 (08:12→17:47)
[2022-05-30] MEDS: RisperiDONE 3 MG TABLET PO SCH ×2 (08:12→21:06)
[2022-05-30] MEDS: DIVALPROEX SODIUM 500 MG DR TABLET PO SCH ×2 (08:12→21:06)
[2022-05-30 08:20] VITALS: BP 109/76
[2022-05-30] MEDS: LORazepam 2 MG TABLET PO PRN (08:43)
[2022-05-30 21:02] VITALS: BP 116/84
[2022-05-31] MEDS: MAG HYDROX/AL HYDROX/SIMETH ES 30 ML SUSPENSION UDCUP PO PRN (00:23)
[2022-05-31] MEDS: ZOLPIDEM TARTRATE 10 MG TABLET PO PRN ×2 (00:25→20:02)
[2022-05-31 08:05] VITALS: BP 127/90
[2022-05-31] MEDS: RisperiDONE 3 MG TABLET PO SCH ×2 (09:03→20:02)
[2022-05-31] MEDS: LITHIUM CARBONATE 300 MG CAPSULE PO SCH ×2 (09:03→16:01)
[2022-05-31] MEDS: DIVALPROEX SODIUM 500 MG DR TABLET PO SCH ×2 (09:03→20:02)
[2022-05-31] MEDS: QUEtiapine FUMARATE 200 MG TABLET PO SCH ×2 (09:04→16:01)
[2022-05-31] MEDS: LORazepam 2 MG TABLET PO PRN (09:04)
[2022-05-31 20:19] VITALS: BP 118/70
[2022-06-01] MEDS: QUEtiapine FUMARATE 200 MG TABLET PO SCH ×2 (08:12→16:03)
[2022-06-01] MEDS: RisperiDONE 3 MG TABLET PO SCH ×2 (08:12→20:27)
[2022-06-01] MEDS: LORazepam 2 MG TABLET PO PRN ×2 (08:12→20:27)
[2022-06-01] MEDS: DIVALPROEX SODIUM 500 MG DR TABLET PO SCH ×2 (08:13→20:26)
[2022-06-01] MEDS: LITHIUM CARBONATE 300 MG CAPSULE PO SCH ×2 (08:13→16:03)
[2022-06-01] MEDS: HALOPERIDOL 5 MG TABLET PO PRN (16:03)
[2022-06-01] MEDS: LACTULOSE 20 GM/30 ML SOLUTION UDCUP PO SCH (16:08)
[2022-06-02 08:18] VITALS: BP 110/78
[2022-06-02] MEDS: LITHIUM CARBONATE 300 MG CAPSULE PO SCH ×2 (08:54→16:55)
[2022-06-02] MEDS: DIVALPROEX SODIUM 500 MG DR TABLET PO SCH ×2 (08:54→20:24)
[2022-06-02] MEDS: LACTULOSE 20 GM/30 ML SOLUTION UDCUP PO SCH ×3 (08:55→16:55)
[2022-06-02 10:07] LABS: GLUCOMETER DEV NAME(LOC) POC.BV
[2022-06-02 12:29] VITALS: BP 112/83
[2022-06-02] MEDS: HALOPERIDOL 5 MG TABLET PO PRN (16:55)
[2022-06-02 20:12] VITALS: BP 119/84
[2022-06-02] MEDS ORDERED: QUEtiapine FUMARATE 200 MG TABLET PO SCH (21:00)
[2022-06-03 07:28] LABS: LITHIUM 0.61 mmol/L (0.60-1.20)
[2022-06-03] MEDS ORDERED: LITH300C3 PO (10:26)
[2022-06-03] MEDS ORDERED: QUET200T30 PO (10:26)
[2022-06-03] MEDS ORDERED: DIVA-112 PO (10:26)
[2022-06-03] MEDS: LACTULOSE 20 GM/30 ML SOLUTION UDCUP PO SCH ×2 (10:35→11:28)
[2022-06-03] MEDS: LITHIUM CARBONATE 300 MG CAPSULE PO SCH (10:35)
[2022-06-03] MEDS: DIVALPROEX SODIUM 500 MG DR TABLET PO SCH (10:35)
[2022-06-03 12:30] VITALS: BP 122/80
== END 2022-06-03 13:45 | disposition home or self-care (01) | DRG 750 ==
LOC: EMS 09:04 → B3A 05-19 01:45
PROVIDERS: ADMIT Psychiatry & Neurology Psychiatry; ATTEND Psychiatry & Neurology Psychiatry
DX: F25.0 Schizoaffective disorder, bipolar type (principal); E87.6 Hypokalemia; F10.90 Alcohol use, unspecified, uncomplicated; Z20.822 Contact with and (suspected) exposure to COVID-19; F41.9 Anxiety disorder, unspecified; G47.00 Insomnia, unspecified; J45.909 Unspecified asthma, uncomplicated; K59.00 Constipation, unspecified; K21.9 Gastro-esophageal reflux disease without esophagitis; S93.602A Unspecified sprain of left foot, initial encounter; F12.90 Cannabis use, unspecified, uncomplicated; Y90.9 Presence of alcohol in blood, level not specified; Z78.1 Physical restraint status
CPT/HCPCS: 80048; 80053; 80164; 80178; 82140; 84702; 85025; 99291; G0480; J1200; J1630; J2060